=== PATIENT | female | born 1975 | race Caucasian/White ===

== ENCOUNTER 2017-08-14 12:13 | Inpatient (IN) | payer MEDICAID ==
[~2017-08-14] VITALS: Ht 152.4 cm; Wt 56.8 kg
[2017-08-14] MEDS ORDERED: PANTOPRAZOLE 40 MG INJ IV STA (13:02)
[2017-08-14] MEDS ORDERED: morphine 4 MG/ML VIAL IV STA (13:12)
[2017-08-14] MEDS ORDERED: ONDANSETRON 4 MG INJ IV STA (13:12)
--- NOTE | 2017-08-14 13:22 | ERD ---
ER Documentation Chief Complaint Chief Complaint HEAVY RECTAL BLEEDING, HX OF ANEMIA, ALSO SOB HPI This is a 41-year-old female history of drug-induced cardiomyopathy unknown ejection fraction, history of GI bleed secondary to gastric ulcer who presents with several days of rectal bleeding. Initially she started out with bright red blood per rectum and has transitioned to a little bit darker stool but not black. She denies any hematemesis. She is also describes some mild shortness of breath and mild chest discomfort that is central approximately 2 out of 10. She states this is very similar to episodes in the past where she has required blood transfusions. She is feeling generally weak. ROS All systems reviewed and are negative except as per history of present illness. Medications Home Meds Reported Medications Ferrous Gluconate (Iron) 236 Mg Tablet, 236 MG PO DAILY, TAB 08/14/17 Bumetanide* (Bumetanide*) 1 Mg Tablet, 1 MG PO DAILY, TAB 08/14/17 Sildenafil Citrate* (Viagra*) 100 Mg Tablet, 100 MG PO DAILY Y for COUGH, TAB 08/14/17 Pantoprazole* (Pantoprazole*) 40 Mg Tablet.dr, 40 MG PO AC BREAKFAST, TAB 08/14/17 Allergies Allergies: Coded Allergies: allopurinol (Unverified Allergy, Unknown, 08/14/17) PMhx/Soc As described in HPI FmHx Family History: No diabetes Physical Exam Vitals Vital Signs Date Time Temp Pulse Resp B/P Pulse Ox O2 Delivery O2 Flow Rate FiO2 08/14/17 16:10 98.3 87 18 96/63 98 Room Air 08/14/17 15:09 107 18 106/73 99 Room Air 08/14/17 13:10 116 20 100/70 100 Room Air 08/14/17 12:18 97.9 134 19 108/61 99 Physical Exam General: Well developed, well nourished, no acute distress Head: Normocephalic, atraumatic. Eyes: Pupils equally reactive, EOM intact conjunctival pallor ENT: Moist mucous membranes Neck: Supple, no lymphadenopathy Respiratory: Scant rales at the bases but no distress Cardiovascular: Tachycardia, no murmurs, rubs, or gallops Abdominal: Soft, non-tender, non-distended, no peritoneal signs : Deferred per patient request which I believe is reasonable MSK: No edema, no unilateral swelling, 5/5 strength Neurologic: Alert and oriented, moving all extremities, normal speech, no focal weakness, no cerebellar signs Skin: No rash Psych: Normal mood Result Diagram: 08/14/17 1300 08/14/17 1300 Results 24 hrs Laboratory Tests Test 08/14/17 13:00 White Blood Count 6.510^3/ul Red Blood Count 2.4310^6/ul Hemoglobin 6.6g/dl Hematocrit 22.6% Mean Corpuscular Volume 93.0fl Mean Corpuscular Hemoglobin 27.2pg Mean Corpuscular Hemoglobin Concent 29.2g/dl Red Cell Distribution Width 19.8% Platelet Count 54998^3/UL Mean Platelet Volume 10.4fl Neutrophils % 69.9% Segmented Neutrophils % (Manual) 65% Lymphocytes % 17.6% Lymphocytes % (Manual) 21% Monocytes % 6.6% Monocytes % (Manual) 6% Eosinophils % 4.8% Eosinophils % (Manual) 6% Basophils % 0.6% Basophils % (Manual) 2% Nucleated Red Blood Cells % 0.0/100WBC Neutrophils # 4.510^3/ul Absolute Lymphocytes (Manual) 1.310^3/ul Lymphocytes # 1.110^3/ul Monocytes # 0.410^3/ul Absolute Monocytes (Manual) 0.310^3/ul Eosinophils # 0.310^3/ul Basophils # 0.010^3/ul Basophils # (Manual) 0.110^3/ul Nucleated Red Blood Cells # 0.010^3/ul Platelet Estimate NORMAL Giant Platelets 1% Polychromasia 2+ Hypochromasia 1+ Anisocytosis 1+ Macrocytosis 1+ Prothrombin Time 12.6Sec Prothrombin Time Ratio 1.0 INR International Normalized Ratio 0.93 Activated Partial Thromboplast Time 26.9Sec Sodium Level 145mmol/L Potassium Level 3.5mmol/L Chloride Level 111mmol/L Carbon Dioxide Level 21mmol/L Anion Gap 17 Blood Urea Nitrogen 12mg/dl Creatinine 0.80mg/dl Glucose Level 108mg/dl Calcium Level 8.8mg/dl Total Bilirubin 0.2mg/dl Direct Bilirubin 0.00mg/dl Indirect Bilirubin 0.2mg/dl Aspartate Amino Transf (AST/SGOT) 17IU/L Alanine Aminotransferase (ALT/SGPT) 22IU/L Alkaline Phosphatase 77IU/L Troponin I < 0.012ng/ml B-Type Natriuretic Peptide 919PG/ML Total Protein 6.9g/dl Albumin 4.1g/dl Globulin 2.80g/dl Albumin/Globulin Ratio 1.46 Current Medications Medications (Trade) Dose Ordered Sig/Ty Route PRN Reason Start Time Stop Time Status Last Admin Dose Admin Pantoprazole (Protonix Iv) 40 mg ONCE STAT IV 08/14/17 13:02 08/14/17 13:04 DC 08/14/17 13:35 Morphine Sulfate (morphine) 4 mg ONCE STAT IV 08/14/17 13:12 08/14/17 13:13 DC 08/14/17 13:35 Ondansetron HCl 4 mg 4 mg ONCE STAT IV 08/14/17 13:12 08/14/17 13:13 DC 08/14/17 13:35 Sodium Chloride (NS) 250 ml @ 0 mls/hr Q0M ONCE IV 08/14/17 13:32 08/14/17 13:34 DC Ondansetron HCl (Zofran Inj) 4 mg ER BRIDGE PRN IV NAUSEA AND/OR VOMITING 08/14/17 14:30 08/15/17 14:29 Acetaminophen (Tylenol Tab) 650 mg ER BRIDGE PRN PO MILD PAIN/FEVER 08/14/17 14:30 08/15/17 14:29 IV Flush (NS 3 ml) 3 ml PER PROTOCOL IV 08/14/17 15:30 UNV Pantoprazole (Protonix Iv) 40 mg BID@06,18 IV 08/14/17 18:00 UNV Bumetanide (Bumex) 1 mg DAILY PO 08/15/17 09:00 Sildenafil Citrate (Viagra) 100 mg DAILY PRN PO COUGH 08/14/17 16:00 08/14/17 16:00 DC Sildenafil Citrate (Revatio) 10 mg TID PO 08/14/17 17:00 Procedures/MDM EKG, MONITORS, & DIAGNOSTIC IMAGING: EKG #1 EKG: I reviewed and interpreted a 12-lead EKG. Rhythm: Sinus tachycardia Ectopy: None Intervals: No abnormalities ST segments: ST segment depressions in anterior lateral leads consistent with demand ischemia versus chronic changes T waves: No contiguous inversions EKG #2 EKG: I reviewed and interpreted a 12-lead EKG. Rhythm: Sinus tachycardia Ectopy: None Intervals: No abnormalities ST segments: ST segment depressions in anterior lateral leads consistent with demand ischemia versus chronic changes, though improving from above T waves: No contiguous inversions Chest x-ray: I reviewed and interpreted a 1 view of the chest Mediastinum: No enlargement Cardiac silhouette: No cardiomegaly Airspace: Clear lung vee bilaterally without evidence of pneumothorax Bones: No evidence of fracture LAB INTERPRETATION: Hemoglobin less than 7, normal BUN to creatinine ratio MEDICAL DECISION MAKING: The patient presents with multiple issues including chest pain, rectal bleeding and likely anemia. The constellation of her symptoms are likely in the setting of chronic disease secondary to drug-induced cardiomyopathy and history of GI bleed. This is potentially a subacute upper GI bleed with the patient denies any significant hematemesis. She does describe a history of endoscopy showing what she thinks is a gastric ulcer. The patient is hemodynamically stable. I discussed rectal examination with the patient, we decided on deferring the digital rectal examination as it is unlikely to provide any additional information given the stability of the patient. She agrees with the plan. The patient will be started on a PPI. She was given morphine for pain in the chest. I would like to avoid aspirin given likely in the setting of demand ischemia secondary to GI bleed. The risks outweigh the benefits. Her chest pain is not likely consistent with acute plaque rupture. I would like to avoid aggressive fluid resuscitation therefore blood products would likely be necessary to control the patient's tachycardia I discussed with the patient and/or family the risks, benefits, alternatives of blood transfusion. This includes allergic reaction and infections including HIV and hepatitis. The patient and/or family were able to verbalize these risks , stated understanding. A document has been signed and placed in the chart. ER COURSE: 40 mg of PPI provided IV. The patient was typed and crossmatched for 1 unit of packed red blood cells. The patient continues to be hemodynamically stable without evidence of active hemorrhage. Nonemergent GI consultation per inpatient basis would be reasonable through primary admitting team. I kept the patient and/or family informed of laboratory and diagnostic imaging results throughout the emergency room course. DISPOSITION PLAN: Telemetry admission CONSULTATION: Accepting care team and consultations: I discussed the current laboratory data, diagnostic imaging and emergency care provided. Admitting team: Dr. Parker Admitting team indication: Insurance directed Departure Diagnosis: Primary Impression: GI hemorrhage GI bleed type/associated pathology: unspecified gastrointestinal hemorrhage type Qualified Code: K92.2 - Gastrointestinal hemorrhage, unspecified gastrointestinal hemorrhage type Additional Impressions: Symptomatic anemia History of cardiomyopathy Chest pain Chest pain type: unspecified Qualified Code: R07.9 - Chest pain, unspecified type Condition: PETE Dahl MD Aug 14, 2017 13:22
--- NOTE | 2017-08-14 13:22 | RADRPT ---
PROCEDURE: XR Chest. CLINICAL INDICATION: Shortness of breath TECHNIQUE: Single portable view of the chest was obtained COMPARISON: No priors for comparison FINDINGS: The trachea is midline. The cardiac silhouette is enlarged and pulmonary vascularity are within norm al limits. The lungs are clear. The costophrenic angles are sharp. IMPRESSION: 1. Cardiomegaly. No evidence of acute cardiopulmonary disease. RPTAT: AAPP Physician Lele Date Time Electronically viewed and signed by Aleyda Smyth Physician on 08/14/2017 13:22 JL/
[2017-08-14 13:28] LABS: ABNORMAL IP MESSAGE 1; BASOPHILS % 0.6 % (0.0-2.0); EOSINOPHILS # 0.3 10^3/ul (0.0-0.5); EOSINOPHILS % 4.8 % (0.0-7.0); HEMATOCRIT 22.6 % (37.0-47.0); LYMPHOCYTES # 1.1 10^3/ul (0.8-2.9); LYMPHOCYTES % 17.6 % (15.0-51.0); MEAN CORPUSCULAR HEMOGLOBIN 27.2 pg (29.0-33.0); MEAN CORPUSCULAR HGB CONC 29.2 g/dl (32.0-37.0); MEAN PLATELET VOLUME 10.4 fl (7.4-10.4); MONOCYTE # 0.4 10^3/ul (0.3-0.9); MONOCYTES % 6.6 % (0.0-11.0); NEUTROPHIL # 4.5 10^3/ul (1.6-7.5); NEUTROPHILS % 69.9 % (39.0-77.0); PLATELET COUNT 235 10^3/UL (140-415); RED BLOOD COUNT 2.43 10^6/ul (4.20-5.40); RED CELL DISTRIBUTION WIDTH 19.8 % (11.5-14.5); WHITE BLOOD COUNT 6.5 10^3/ul (4.8-10.8)
[2017-08-14 13:32] LABS: HEMOGLOBIN 6.6 g/dl (12.0-16.0); POSITIVE DIFF @See below
[2017-08-14] MEDS ORDERED: SOD CHLORIDE 0.9% 250 ML IV ONE ×3 (13:32→22:00)
[2017-08-14 13:45] LABS: INR 0.93; PROTIME 12.6 Sec (11.9-14.9)
[2017-08-14 13:46] LABS: PARTIAL THROMBOPLASTIN TIME 26.9 Sec (25.0-35.0)
[2017-08-14 13:48] LABS: ALANINE AMINOTRANSFERASE 22 IU/L (13-69); ALBUMIN 4.1 g/dl (3.3-4.9); ALBUMIN/GLOBULIN RATIO 1.46; ALKALINE PHOSPHATASE 77 IU/L (42-121); ANION GAP 17 (8-16); ASPARTATE AMINO TRANSFERASE 17 IU/L (15-46); BILIRUBIN,INDIRECT 0.2 mg/dl (0-1.1); BILIRUBIN,TOTAL 0.2 mg/dl (0.2-1.3); BLOOD UREA NITROGEN 12 mg/dl (7-20); CALCIUM 8.8 mg/dl (8.4-10.2); CARBON DIOXIDE 21 mmol/L (21-31); CHLORIDE 111 mmol/L (97-110); GLUCOSE 108 mg/dl (70-220); POTASSIUM 3.5 mmol/L (3.5-5.1); SODIUM 145 mmol/L (135-144); TOTAL PROTEIN 6.9 g/dl (6.1-8.1)
[2017-08-14 13:58] LABS: B-TYPE NATRIURETIC PEPTIDE 919 PG/ML (0-125)
[2017-08-14 14:02] LABS: TROPONIN-I < 0.012 ng/ml (0.00-0.12)
[2017-08-14] MEDS ORDERED: ONDANSETRON 4 MG INJ IV PRN (14:30)
[2017-08-14] MEDS ORDERED: ACETAMINOPHEN 325 MG TAB PO PRN (14:30)
[2017-08-14 14:36] LABS: ANISOCYTOSIS 1+ (0-0); BASOPHILS % (M) 2 % (0-2); EOSINOPHILS % (M) 6 % (0-7); GIANT THROMBO% (M) 1 % (0-0); HYPOCHROMASIA 1+ (0-0); MONOCYTES % (M) 6 % (0-11); PLATELET ESTIMATE NORMAL; POLYCHROMASIA 2+ (0-0)
[2017-08-14] MEDS ORDERED: BUME1TAB18 PO (14:59)
[2017-08-14] MEDS ORDERED: SILD100T51 PO (14:59)
[2017-08-14] MEDS ORDERED: PANT40TA4 PO (14:59)
[2017-08-14] MEDS ORDERED: FERR236T PO (15:00)
[2017-08-14] MEDS ORDERED: NACL 0.9% 3 ML SYG IV SCH (15:30)
--- NOTE | 2017-08-14 15:41 | HP ---
Date/Time of Note Date/Time of Note DATE: 08/14/17 TIME: 15:31 Assessment/Plan VTE Prophylaxis VTE Prophylaxis Intervention: other Lines/Catheters IV [facility]from [facility] Saline Lock Assessment/Plan Chief Complaint/Hosp Course 41 yo female with history of nonischemic systolic cardiomyopathy, pulmonary artery hypertension, and blood loss anemia presenting with hematochezia. Found to have marked anemia with Hgb of 6 Acute blood loss anemia 2/2 GIB: - Transfuse PRN > 7, with care for TACO given cardiomyopathy - Consult GI for endoscopy - PPI - Check iron stores Nonichemic chronic systolic cardiomyopathy, pulmonary hypertension: - Continue sildenafil - Continue bumex 1 mg daily - Check TTE - Unclear why no BB or CHANDA, etc - Dr Durand to consult for clearance Discharge following endoscopy Problems: HPI/ROS Admit Date/Time Admit Date/Time Hx of Present Illness 41 yo female with unclear nonischemic systolic cardiomyopathy, iron deficiency anemia, pulmonary artery hypertension who presents with hematochezia Patient with hematochezia over past three days. Last episode yesterday. Came to ED today because she feels week and out of breath. She has had this before. Previously underwent endoscopy earlier this year and told she has PUD and prescribed PPI and Fe. This was in [place] where she is visiting from currently. Feels well at rest. PMH/Family/Social Past Medical History Medical History: congestive heart failure, GI bleed Social History Alcohol Use: none Smoking Status: Never smoker Drug Use: none Exam/Review of Systems Vital Signs Vitals Vital Signs Date Time Temp Pulse Resp B/P Pulse Ox O2 Delivery O2 Flow Rate FiO2 08/14/17 15:09 107 18 106/73 99 Room Air 08/14/17 12:18 97.9 Exam Exam AOx3, pleasant, comfortable RRR, 2/6 systolic murmur, displaced PMI Lungs clear Neck veins flat Abd soft nt nd Rectal exam deferred ext without edema Labs Result Diagram: 08/14/17 1300 08/14/17 1300 LAILA LUI MD Aug 14, 2017 15:41
[2017-08-14] MEDS ORDERED: SILDENAFIL 100 MG TAB PO PRN (16:00)
[2017-08-14 16:10] VITALS: TEMP 98.3
[2017-08-14] MEDS: SILDENAFIL 20 MG TAB PO SCH ×2 (17:25→23:30)
--- NOTE | 2017-08-14 17:39 | CONS ---
Date/Time of Note Date/Time of Note DATE: 08/14/17 TIME: 17:34 Assessment/Plan Assessment/Plan Additional Assessment/Plan Acute blood loss anemia 2/2 GIB: Nonichemic chronic systolic cardiomyopathy Pulmonary hypertension: The patient with no active CHF, hemodynamically stable and as such, MAY PROCEED TO GI PROCEDURE WITH MODERATE CARDAIC RISK. Given hx of pulmonary HTN, anesthesia to be monitoring carefully due to higher risk of cardopulmonary compromise with the procedure Echo oredered to check EF and PAP Continue revatio Possible cardiac meds to be adjusted if low EF RX PRBC sw family Consultation Date/Type/Reason Admit Date/Time Hx of Present Illness 41 yo female with unclear nonischemic systolic cardiomyopathy, iron deficiency anemia, pulmonary artery hypertension who presents with hematochezia Patient with hematochezia over past three days. Last episode yesterday. Came to ED today because she feels week and out of breath. She has had this before. Previously underwent endoscopy earlier this year and told she has PUD and prescribed PPI and Fe. This was in [place] where she is visiting from currently. Feels well at rest. She has atypical chest pain, DOYLE with hx of CHF currently stable but procound anemia and may udergo EGD Past Medical History Medical History: congestive heart failure, GI bleed Social History Alcohol Use: none Smoking Status: Never smoker Drug Use: none Exam/Review of Systems Vital Signs Vitals Vital Signs Date Time Temp Pulse Resp B/P Pulse Ox O2 Delivery O2 Flow Rate FiO2 08/14/17 16:10 98.3 87 18 96/63 98 Room Air 08/14/17 16:00 2 Results Result Diagram: 08/14/17 1300 08/14/17 1300 Results 24 hrs Laboratory Tests Test 08/14/17 13:00 White Blood Count 6.5 Red Blood Count 2.43 L Hemoglobin 6.6 *L Hematocrit 22.6 L Mean Corpuscular Volume 93.0 Mean Corpuscular Hemoglobin 27.2 L Mean Corpuscular Hemoglobin Concent 29.2 L Red Cell Distribution Width 19.8 H Platelet Count 235 Mean Platelet Volume 10.4 Neutrophils % 69.9 Segmented Neutrophils % (Manual) 65 Lymphocytes % 17.6 Lymphocytes % (Manual) 21 Monocytes % 6.6 Monocytes % (Manual) 6 Eosinophils % 4.8 Eosinophils % (Manual) 6 Basophils % 0.6 Basophils % (Manual) 2 Nucleated Red Blood Cells % 0.0 Neutrophils # 4.5 Absolute Lymphocytes (Manual) 1.3 Lymphocytes # 1.1 Monocytes # 0.4 Absolute Monocytes (Manual) 0.3 Eosinophils # 0.3 Basophils # 0.0 Basophils # (Manual) 0.1 H Nucleated Red Blood Cells # 0.0 Platelet Estimate NORMAL Giant Platelets 1 H Polychromasia 2+ Hypochromasia 1+ Anisocytosis 1+ Macrocytosis 1+ Prothrombin Time 12.6 Prothrombin Time Ratio 1.0 INR International Normalized Ratio 0.93 Activated Partial Thromboplast Time 26.9 Sodium Level 145 H Potassium Level 3.5 Chloride Level 111 H Carbon Dioxide Level 21 Anion Gap 17 H Blood Urea Nitrogen 12 Creatinine 0.80 Glucose Level 108 Calcium Level 8.8 Total Bilirubin 0.2 Direct Bilirubin 0.00 Indirect Bilirubin 0.2 Aspartate Amino Transf (AST/SGOT) 17 Alanine Aminotransferase (ALT/SGPT) 22 Alkaline Phosphatase 77 Troponin I < 0.012 B-Type Natriuretic Peptide 919 H Total Protein 6.9 Albumin 4.1 Globulin 2.80 Albumin/Globulin Ratio 1.46 Medications Medications Current Medications Pantoprazole (Protonix Iv) 40 mg BID@06,18 IV ; Start 08/14/17 at 22:00 Bumetanide (Bumex) 1 mg DAILY PO ; Start 08/15/17 at 09:00 Sildenafil Citrate (Revatio) 10 mg TID PO Last administered on 08/14/17t 17:25 ; Admin Dose 10 MG; Start 08/14/17 at 17:00 RYANN ALICIA MD Aug 14, 2017 17:39
--- NOTE | 2017-08-14 17:50 | RADRPT ---
Echocardiogram Report Patient Name: AINSLEY CLEARY Gender: Female Date: 1975 Study Date: 14-Aug-2017 [employer] Field Supervisor: Jim [facility] Location: [facility] Ref. Physician: LAILA LUI Quality: Adequate Procedures: Transthoracic echocardiogram with complete 2D, M-Mode, and doppler examination. Indications: Congestive Heart Failure. 2D/M Mode Doppler Measurement Value Normal Ranges Measurement Value Normal Ranges LVIDd 2D 3.7 3.5 - 5.6 cm AV Peak Pierre 1.3 m/sec LVIDs 2D 2.5 2.1 - 4.1 cm AV Peak PG 7.0 mmHg FS 2D 32.0 % LVOT Peak Pierre 0.8 m/sec LVPWd 2D 1.3 0.6 - 1.1 cm LVOT Peak PG 3.0 mmHg IVSd 2D 1.3 0.6 - 1.1 cm MV E Peak Pierre 0.9 m/sec IVS/LVPW 2D 1.0 MV A Peak Pierre 0.7 m/sec AoR Diam 2D 3.0 2.0 - 3.7 cm MV E/A 1.3 LA/Ao 2D 1 0 - 1 MV Decel Time 134 msec EDV 2D 51.5 cm3 MV E/A 1.3 ESV 2D 16.2 cm3 TR Peak Pierre 5.0 m/sec LA Dimen 2D 3.9 2.3 - 4.0 cm TR Peak PG 100.0 mmHg RVSP 103.0 mmHg Findings Left Ventricle: Normal left ventricular systolic function. Normal left ventricular cavity size. Moderate concentric left ventricular hypertrophy. Ejection fraction is visually estimated at 65 %. Abnormal Diastolic Function. Right Ventricle: Normal right ventricular systolic function. Severe enlargement of right ventricle. Left Atrium: There is mild enlargement of left atrium. Right Atrium: There is mild enlargement of right atrium. Mitral Valve: Mild mitral leaflet calcification. Mild mitral annular calcification. Trace mitral regurgitation. Aortic Valve: Normal appearance of the aortic valve. No significant aortic stenosis or insufficiency. Tricuspid Valve: Normal appearance of the tricuspid valve. Estimated peak PA systolic pressure 103 mmHg. There is moderate to severe tricuspid regurgitation. Pulmonic Valve: Pulmonic valve not well visualized. There is trace pulmonic regurgitation. Pericardium: Normal pericardium with no significant pericardial effusion. Aorta: Normal aortic root. IVC: Normal size and normal respiratory collapse consistent with normal right atrial pressure. Conclusions 1.Normal left ventricular systolic function. Normal left ventricular cavity size. Moderate concentric left ventricular hypertrophy. Ejection fraction is visually estimated at 65 %. Abnormal Diastolic Function. 2.There is mild enlargement of left atrium. 3.There is mild enlargement of right atrium. 4.Mild mitral leaflet calcification. Mild mitral annular calcification. Trace mitral regurgitation. 5.Normal appearance of the aortic valve. No significant aortic stenosis or insufficiency. 6.Normal right ventricular systolic function. Severe enlargement of right ventricle. 7.Normal appearance of the tricuspid valve. Estimated peak PA systolic pressure 103 mmHg. There is moderate to severe tricuspid regurgitation. 8.Pulmonic valve not well visualized. There is trace pulmonic regurgitation. 9.Normal pericardium with no significant pericardial effusion. Electronically Signed By: Florentino Doll 14-Aug-2017 17:49:50 -0800 Patient Name: AINSLEY CLEARY Study Date: 14-Aug-2017 [id number]
[2017-08-14 20:04] LABS: ADD UMIC YES; UR ASCORBIC ACID NEGATIVE (NEGATIVE); UR BILIRUBIN (Dip) NEGATIVE (NEGATIVE); UR BLOOD (Dip) 3+ mg/dL (NEGATIVE); UR CLARITY CLEAR (CLEAR); UR COLOR YELLOW (YELLOW); UR GLUCOSE (Dip) NEGATIVE (NEGATIVE); UR KETONES (Dip) NEGATIVE (NEGATIVE); UR LEUKOCYTE ESTERASE (Dip) NEGATIVE Leu/ul (NEGATIVE); UR MUCUS FEW /HPF (NONE SEEN); UR NITRITE (Dip) NEGATIVE (NEGATIVE); UR RBC 9 /HPF (0-5); UR SPECIFIC GRAVITY (Dip) 1.024 (1.003-1.030); UR SQUAMOUS EPITHELIAL CELL FEW /HPF (FEW); UR TOTAL PROTEIN (Dip) NEGATIVE (NEGATIVE); UR UROBILINOGEN (Dip) NEGATIVE (NEGATIVE)
[2017-08-14 20:13] LABS: CREATINE KINASE 24 IU/L (23-200)
[2017-08-14 20:25] LABS: CK-MB 0.26 ng/ml (0.0-2.4)
[2017-08-14 20:26] LABS: TROPONIN-I < 0.012 ng/ml (0.00-0.12)
[2017-08-14 20:30] VITALS: Ht 152.4 cm; Wt 56.8 kg
[2017-08-14 20:53] VITALS: PULSE 79
[2017-08-14] MEDS ORDERED: morphine 2 MG INJ IV STA (20:59)
[2017-08-14 21:26] LABS: BASOPHILS % 0.3 % (0.0-2.0); EOSINOPHILS # 0.2 10^3/ul (0.0-0.5); EOSINOPHILS % 3.4 % (0.0-7.0); HEMATOCRIT 22.7 % (37.0-47.0); LYMPHOCYTES # 0.8 10^3/ul (0.8-2.9); LYMPHOCYTES % 13.9 % (15.0-51.0); MEAN CORPUSCULAR HEMOGLOBIN 27.7 pg (29.0-33.0); MEAN CORPUSCULAR HGB CONC 30.8 g/dl (32.0-37.0); MEAN CORPUSCULAR VOLUME 89.7 fl (82.0-101.0); MEAN PLATELET VOLUME 11.8 fl (7.4-10.4); MONOCYTE # 0.4 10^3/ul (0.3-0.9); MONOCYTES % 6.7 % (0.0-11.0); NEUTROPHIL # 4.4 10^3/ul (1.6-7.5); NEUTROPHILS % 75.4 % (39.0-77.0); NUCLEATED RED BLOOD CELLS% 0.3 /100WBC (0.0-0.0); PLATELET COUNT 159 10^3/UL (140-415); RED BLOOD COUNT 2.53 10^6/ul (4.20-5.40); RED CELL DISTRIBUTION WIDTH 18.9 % (11.5-14.5); WHITE BLOOD COUNT 5.8 10^3/ul (4.8-10.8)
[2017-08-14] MEDS ORDERED: SOD CHLORIDE 0.9% 1,000 ML IV SCH (22:00)
[2017-08-14 22:07] VITALS: BP 96/55; RESP 20
[2017-08-14] MEDS: PANTOPRAZOLE 40 MG INJ IV SCH (23:22)
[2017-08-14 23:36] VITALS: BP 90/52; RESP 20
[2017-08-15] VITALS (20 sets, daily range): BP systolic 85–98; BP diastolic 51–64; PULSE 66–152; RESP 18–25
[2017-08-15] MEDS ORDERED: POTASSIUM CHLORIDE 250 ML IVPB ONE (01:00)
[2017-08-15] MEDS ORDERED: FUROSEMIDE 20 MG TAB PO ONE (01:00)
[2017-08-15] MEDS ORDERED: SOD CHLORIDE 0.9% 250 ML IV ONE (04:30)
[2017-08-15] MEDS: PANTOPRAZOLE 40 MG INJ IV SCH (06:27)
[2017-08-15 07:38] LABS: ABNORMAL IP MESSAGE 1; BASOPHILS % 0.7 % (0.0-2.0); EOSINOPHILS # 0.2 10^3/ul (0.0-0.5); EOSINOPHILS % 4.8 % (0.0-7.0); HEMATOCRIT 22.2 % (37.0-47.0); LYMPHOCYTES # 0.7 10^3/ul (0.8-2.9); LYMPHOCYTES % 15.2 % (15.0-51.0); MEAN CORPUSCULAR HEMOGLOBIN 27.4 pg (29.0-33.0); MEAN CORPUSCULAR HGB CONC 29.7 g/dl (32.0-37.0); MEAN CORPUSCULAR VOLUME 92.1 fl (82.0-101.0); MONOCYTE # 0.3 10^3/ul (0.3-0.9); MONOCYTES % 6.7 % (0.0-11.0); NEUTROPHIL # 3.3 10^3/ul (1.6-7.5); NEUTROPHILS % 72.4 % (39.0-77.0); PLATELET COUNT 179 10^3/UL (140-415); RED BLOOD COUNT 2.41 10^6/ul (4.20-5.40); RED CELL DISTRIBUTION WIDTH 19.7 % (11.5-14.5); WHITE BLOOD COUNT 4.6 10^3/ul (4.8-10.8)
[2017-08-15 07:41] LABS: ALBUMIN 3.2 g/dl (3.3-4.9); ALBUMIN/GLOBULIN RATIO 1.14; BILIRUBIN,INDIRECT 0.5 mg/dl (0-1.1); BILIRUBIN,TOTAL 0.5 mg/dl (0.2-1.3); CALCIUM 8.9 mg/dl (8.4-10.2); CREATININE 0.75 mg/dl (0.44-1.00); POTASSIUM 4.3 mmol/L (3.5-5.1)
[2017-08-15 07:45] LABS: POSITIVE DIFF @See below
[2017-08-15 07:47] LABS: HEMOGLOBIN 6.6 g/dl (12.0-16.0)
[2017-08-15 07:49] LABS: CREATINE KINASE < 20 IU/L (23-200)
[2017-08-15 07:54] LABS: CK-MB 0.34 ng/ml (0.0-2.4)
[2017-08-15 07:57] LABS: TROPONIN-I < 0.012 ng/ml (0.00-0.12)
[2017-08-15] MEDS ORDERED: morphine 2 MG INJ IV STA (08:09)
[2017-08-15] MEDS: BUMETANIDE 1 MG TAB PO SCH (08:11)
[2017-08-15] MEDS: SILDENAFIL 20 MG TAB PO SCH ×3 (08:11→21:00)
[2017-08-15 08:12] LABS: THYROID STIMULATING HORMONE 2.56 MIU/L (0.465-4.680)
--- NOTE | 2017-08-15 10:29 | CONS ---
Date/Time of Note Date/Time of Note DATE: 08/15/17 TIME: 10:15 Assessment/Plan Assessment/Plan Chief Complaint/Hosp Course Summary Assessment and Plan: Assessment: Acute anemia R/o PUD vs gastritis vs AVM Nonischemic chronic systolic cardiomyopathy Pulmonary hypertension: Plan: Keep NPO status PPI therapy plan for EGD today Endoscopy - risks/benefits/alternatives/indications of procedure and sedation/ anesthesia discussed with patient who states understanding and gives informed consent to proceed. PARQ held and questions were answered. Patient seen in collaboration with Problems: Consultation Date/Type/Reason Admit Date/Time Date of Consultation: Aug 15, 2017 Type of Consultation: GI Reason for Consultation Hematochezia Severe anemia Hx of Present Illness This is a 41-year-old female with past medical history of cardiomyopathy and pulmonary arterial hypertension diagnosed 5 years ago, and recent diagnosis of gastric ulcer. Presents to the ER with worsening fatigue and shortness of breath, patient is currently visiting from [facility]. She noted black tarry stools starting about 5 days ago and and continued with bright red stools last bm 2 days ago. The time of examination patient is already received 1 unit of blood for hemoglobin 6.6 today's lab again was 6.6 and is currently receiving a unit of blood. Patient was seen by Dr. Doll cardiac clearance, he is deemed moderate cardiac risk given history of pulmonary hypertension , anesthesia to be monitoring carefully due to higher risk of cardiopulmonary compromise with the procedure. She had similar symptoms last month, underwent EGD and colonoscopy, was diagnosed with gastric ulcer placed on PPI therapy. Her colonoscopy was negative. She currently denies nausea/vomiting/abdominal pain, hematemesis, any further episodes of hematochezia at this time, or unintentional weight loss. With current presentation we will continue n.p.o. status and plan for EGD this evening, continue IV fluids, and continue to monitor H/H. Further recommendations post EGD. Constitutional: no complaints, requiring IVF Eyes: no complaints ENT: no complaints Respiratory: no complaints Cardiovascular: no complaints Gastrointestinal: blood, decreased appetite, No constipation, No nausea, No vomiting Genitourinary: no complaints, other (currently at the end of her menstral cycle ) Musculoskeletal: no complaints Skin: no complaints Past Medical History Medical History: congestive heart failure, GI bleed, other (PAH) Past Surgical History Past Surgical Hx: endoscopy Social History Alcohol Use: none Smoking Status: Never smoker Drug Use: none Exam/Review of Systems Vital Signs Vitals Vital Signs Date Time Temp Pulse Resp B/P Pulse Ox O2 Delivery O2 Flow Rate FiO2 08/15/17 08:38 77 08/15/17 07:56 98.0 20 85/51 97 08/14/17 19:30 Room Air 08/14/17 16:00 2 Intake and Output 08/14/17 08/14/17 08/15/17 15:00 23:00 07:00 Intake Total 350 ml 1120 ml Output Total 450 ml Balance 350 ml 670 ml Exam Constitutional: alert, oriented Psych: no complaints Head: normocephalic Eyes: nl conjunctiva ENMT: nl external ears & nose Neck: non-tender, supple Respiratory: clear to auscultation, normal air movement Cardiovascular: regular rate and rhythm Gastrointestinal: bowel sounds, non-tender, soft, No ascites, No distended, No firm, No hepatomegaly, No mass, No rebound or guarding, No splenomegaly, No surgical scars, No tender Genitourinary - Female: nl adnexae Musculoskeletal: nl extremities to inspection Extremities: normal pulses Results Result Diagram: 08/15/1762608/15/17626 Results 24 hrs Laboratory Tests Test 08/14/17 13:00 08/14/17 19:37 08/14/17 19:48 08/14/17 21:17 White Blood Count 6.5 5.8 Red Blood Count 2.43 L 2.53 L Hemoglobin 6.6 *L 7.0 L Hematocrit 22.6 L 22.7 L Mean Corpuscular Volume 93.0 89.7 Mean Corpuscular Hemoglobin 27.2 L 27.7 L Mean Corpuscular Hemoglobin Concent 29.2 L 30.8 L Red Cell Distribution Width 19.8 H 18.9 H Platelet Count 235 159 # Mean Platelet Volume 10.4 11.8 H Neutrophils % 69.9 75.4 Segmented Neutrophils % (Manual) 65 Lymphocytes % 17.6 13.9 L Lymphocytes % (Manual) 21 Monocytes % 6.6 6.7 Monocytes % (Manual) 6 Eosinophils % 4.8 3.4 Eosinophils % (Manual) 6 Basophils % 0.6 0.3 Basophils % (Manual) 2 Nucleated Red Blood Cells % 0.0 0.3 H Neutrophils # 4.5 4.4 Absolute Lymphocytes (Manual) 1.3 Lymphocytes # 1.1 0.8 Monocytes # 0.4 0.4 Absolute Monocytes (Manual) 0.3 Eosinophils # 0.3 0.2 Basophils # 0.0 0.0 Basophils # (Manual) 0.1 H Nucleated Red Blood Cells # 0.0 0.0 Platelet Estimate NORMAL Giant Platelets 1 H Polychromasia 2+ Hypochromasia 1+ Anisocytosis 1+ Macrocytosis 1+ Prothrombin Time 12.6 Prothrombin Time Ratio 1.0 INR International Normalized Ratio 0.93 Activated Partial Thromboplast Time 26.9 Sodium Level 145 H Potassium Level 3.5 Chloride Level 111 H Carbon Dioxide Level 21 Anion Gap 17 H Blood Urea Nitrogen 12 Creatinine 0.80 Glucose Level 108 Calcium Level 8.8 Total Bilirubin 0.2 Direct Bilirubin 0.00 Indirect Bilirubin 0.2 Aspartate Amino Transf (AST/SGOT) 17 Alanine Aminotransferase (ALT/SGPT) 22 Alkaline Phosphatase 77 Troponin I < 0.012 < 0.012 B-Type Natriuretic Peptide 919 H Total Protein 6.9 Albumin 4.1 Globulin 2.80 Albumin/Globulin Ratio 1.46 Creatine Kinase 24 Creatine Kinase Index 1.1 Creatinine Kinase MB (Mass) 0.26 Urine Color YELLOW Urine Clarity CLEAR Urine pH 5.0 Urine Specific [place] 1.024 Urine Ketones NEGATIVE Urine Nitrite NEGATIVE Urine Bilirubin NEGATIVE Urine Urobilinogen NEGATIVE Urine Leukocyte Esterase NEGATIVE Urine Microscopic RBC 9 H Urine Microscopic WBC 2 Urine Squamous Epithelial Cells FEW Urine Mucus FEW A Urine Hemoglobin 3+ H Urine Glucose NEGATIVE Urine Total Protein NEGATIVE Test 08/15/17 06:27 White Blood Count 4.6 #L Red Blood Count 2.41 L Hemoglobin 6.6 *L Hematocrit 22.2 L Mean Corpuscular Volume 92.1 Mean Corpuscular Hemoglobin 27.4 L Mean Corpuscular Hemoglobin Concent 29.7 L Red Cell Distribution Width 19.7 H Platelet Count 179 Mean Platelet Volume 11.0 H Neutrophils % 72.4 Lymphocytes % 15.2 Monocytes % 6.7 Eosinophils % 4.8 Basophils % 0.7 Nucleated Red Blood Cells % 0.0 Neutrophils # 3.3 Lymphocytes # 0.7 L Monocytes # 0.3 Eosinophils # 0.2 Basophils # 0.0 Nucleated Red Blood Cells # 0.0 Sodium Level 147 H Potassium Level 4.3 Chloride Level 115 H Carbon Dioxide Level 22 Anion Gap 14 Blood Urea Nitrogen 12 Creatinine 0.75 Glucose Level 78 Calcium Level 8.9 Total Bilirubin 0.5 Direct Bilirubin 0.00 Indirect Bilirubin 0.5 Aspartate Amino Transf (AST/SGOT) 17 Alanine Aminotransferase (ALT/SGPT) 28 Alkaline Phosphatase 66 Creatine Kinase < 20 L Creatine Kinase Index Creatinine Kinase MB (Mass) 0.34 Troponin I < 0.012 Total Protein 6.0 L Albumin 3.2 L Globulin 2.80 Albumin/Globulin Ratio 1.14 Thyroid Stimulating Hormone (TSH) 2.560 Medications Medications Current Medications Pantoprazole (Protonix Iv) 40 mg BID@06,18 IV Last administered on 08/15/17 06 :27; Admin Dose 40 MG; Start 08/14/17 at 22:00 Bumetanide (Bumex) 1 mg DAILY PO ; Start 08/15/17 at 09:00 Sildenafil Citrate (Revatio) 10 mg TID PO Last administered on 08/14/17 17:25 ; Admin Dose 10 MG; Start 08/14/17 at 17:00 Copies To: CC: CHRIS WEST MD, VICTORIA Aug 15, 2017 10:27
--- NOTE | 2017-08-15 13:55 | PN ---
Date/Time of Note Date/Time of Note DATE: 08/15/17 TIME: 13:53 Assessment/Plan VTE Prophylaxis VTE Prophylaxis Intervention: SCD's Lines/Catheters IV Catheter Type (from Nrs): Peripheral IV Assessment/Plan Chief Complaint/Hosp Course 41 yo female with history of pulmonary artery hypertension, and blood loss anemia presenting with hematochezia. Found to have marked anemia with Hgb of 6 Acute blood loss anemia 2/2 GIB: - Transfuse PRN > 7 - endoscopy today - PPI - Check iron stores Pulmonary hypertension: - Continue sildenafil - Continue bumex 1 mg daily Severe tricsupid regurgitation Concentric left ventricular hypertrophy Discharge following endoscopic evaluation and H/H stable Problems: Subjective 24 Hr Interval Summary Free Text/Dictation TTE showed normal EF, concentric LVH, PASP 100, mod/severe TR Transfused another unit of PRBCs this AM Awaiting EGD Exam/Review of Systems Vital Signs Vitals Vital Signs Date Time Temp Pulse Resp B/P Pulse Ox O2 Delivery O2 Flow Rate FiO2 08/15/17 12:58 98.0 70 20 87/53 98 08/14/17 19:30 Room Air 08/14/17 16:00 2 Intake and Output 08/14/17 08/14/17 08/15/17 15:00 23:00 07:00 Intake Total 350 ml 1120 ml Output Total 450 ml Balance 350 ml 670 ml Exam Constitutional: alert, oriented, well developed Psych: nl mood/affect, no complaints Head: atraumatic, normocephalic Eyes: EOMI, PERRL, nl conjunctiva, nl lids, nl sclera ENMT: nl external ears & nose, nl lips & teeth, nl nasal mucosa & septum Neck: non-tender, supple Respiratory: clear to auscultation, normal air movement Cardiovascular: nl pulses, regular rate and rhythm Gastrointestinal: nl liver, spleen, non-tender, soft Musculoskeletal: nl extremities to inspection, nl gait and stance Extremities: normal pulses Neurological: WELL SERVICE FLOORPERSON II-XII intact, nl mental status, nl speech, nl strength Skin: nl turgor, No rash or lesions Lymph: nl lymph nodes Results Result Diagram: 08/15/1727 08/15/17626 Results 24 hrs Laboratory Tests Test 08/14/17 19:37 08/14/17 19:48 08/14/17 21:17 08/15/17 06:27 Creatine Kinase 24 < 20 L Creatine Kinase Index 1.1 Creatinine Kinase MB (Mass) 0.26 0.34 Troponin I < 0.012 < 0.012 Urine Color YELLOW Urine Clarity CLEAR Urine pH 5.0 Urine Specific [place] 1.024 Urine Ketones NEGATIVE Urine Nitrite NEGATIVE Urine Bilirubin NEGATIVE Urine Urobilinogen NEGATIVE Urine Leukocyte Esterase NEGATIVE Urine Microscopic RBC 9 H Urine Microscopic WBC 2 Urine Squamous Epithelial Cells FEW Urine Mucus FEW A Urine Hemoglobin 3+ H Urine Glucose NEGATIVE Urine Total Protein NEGATIVE White Blood Count 5.8 4.6 #L Red Blood Count 2.53 L 2.41 L Hemoglobin 7.0 L 6.6 *L Hematocrit 22.7 L 22.2 L Mean Corpuscular Volume 89.7 92.1 Mean Corpuscular Hemoglobin 27.7 L 27.4 L Mean Corpuscular Hemoglobin Concent 30.8 L 29.7 L Red Cell Distribution Width 18.9 H 19.7 H Platelet Count 159 # 179 Mean Platelet Volume 11.8 H 11.0 H Neutrophils % 75.4 72.4 Lymphocytes % 13.9 L 15.2 Monocytes % 6.7 6.7 Eosinophils % 3.4 4.8 Basophils % 0.3 0.7 Nucleated Red Blood Cells % 0.3 H 0.0 Neutrophils # 4.4 3.3 Lymphocytes # 0.8 0.7 L Monocytes # 0.4 0.3 Eosinophils # 0.2 0.2 Basophils # 0.0 0.0 Nucleated Red Blood Cells # 0.0 0.0 Sodium Level 147 H Potassium Level 4.3 Chloride Level 115 H Carbon Dioxide Level 22 Anion Gap 14 Blood Urea Nitrogen 12 Creatinine 0.75 Glucose Level 78 Calcium Level 8.9 Total Bilirubin 0.5 Direct Bilirubin 0.00 Indirect Bilirubin 0.5 Aspartate Amino Transf (AST/SGOT) 17 Alanine Aminotransferase (ALT/SGPT) 28 Alkaline Phosphatase 66 Total Protein 6.0 L Albumin 3.2 L Globulin 2.80 Albumin/Globulin Ratio 1.14 Thyroid Stimulating Hormone (TSH) 2.560 Medications Medications Current Medications Pantoprazole (Protonix Iv) 40 mg BID@06,18 IV Last administered on 08/15/17t 06 :27; Admin Dose 40 MG; Start 08/14/17 at 22:00 Bumetanide (Bumex) 1 mg DAILY PO ; Start 08/15/17 at 09:00 Sildenafil Citrate (Revatio) 10 mg TID PO Last administered on 08/14/17t 17:25 ; Admin Dose 10 MG; Start 08/14/17 at 17:00 LAILA LUI MD Aug 15, 2017 13:55
[2017-08-15 16:01] LABS: HEMATOCRIT 24.9 % (37.0-47.0); HEMOGLOBIN 7.9 g/dl (12.0-16.0)
[2017-08-15] MEDS ORDERED: PROPOFOL 20 ML ONE (16:29)
[2017-08-15] MEDS ORDERED: PHENYLephrine (100 MCG/ML) 5ML SYG ONE (16:41)
--- NOTE | 2017-08-15 16:57 | OPPN ---
Date/Time of Note Date/Time of Note DATE: 08/15/17 TIME: 16:46 Proc Note GI Procedure Date 08/15/17 Indication: other (GI bleeding) Pre-procedure Diagnosis GI bleeding Post-procedure Diagnosis Impression: Moderate distal esophagitis. No evidence of bleeding. Multi-ringed esophagus. Rule out eosinophilic esophagitis. Biopsies obtained Moderate gastritis. Rule out H. pylori infection. Biopsies obtained Otherwise normal EGD to the third portion of the duodenum. Plan: PPI therapy Review pathology Colonoscopy Monitor H&H transfuse as necessary . Procedure Performed: Endoscopy (With biopsies) Surgeon CHRIS WEST MD See signature line Colorist Dyer none Anesthesia Type: MAC Anesthesiologist: AARON KINNEY MD Tourniquet Time none EBL none Transfusion required none Biopsy 1: Gastric antrum and body Biopsy 2: Midesophagus Grafts/Implants none Tubes/Drains none Complication(s) none Disposition: PACU Procedure Description After informed consent, with the patient/relatives understanding the procedure, its indications, potential risks and complications, including but not limited to : allergic reaction, bleeding, perforation or infection, and after all pertinent questions were answered to the patients satisfaction, the patient/ relatives signed witnessed informed consent. Following this, premedication was administered slowly IV push under careful cardiovascular and respiratory monitoring with pulse oximetry, automatic blood pressure, and quality assurance monitor. Once the sedative effect was achieved the patient was place in the left lateral decubitus, the panendoscope was introduced and advanced under visual control. Careful examination of the upper gastrointestinal tract, both on insertion as well as withdrawal of the instrument disclosing the following findings: ESOPHAGUS: the mucosa of the entire esophagus was carefully examined and showed the following findings: The midesophagus shows a multi-ringed appearance suggestive of eosinophilic esophagitis. Biopsies were obtained. The distal esophagus showed significant erythema, edema and erosion of the mucosa. No active or recent bleeding is evident. Otherwise the mucosa appears within normal limits. There is no evidence of varices, neoplasm, or stricture. Small hiatal Hernia identified. STOMACH: Upon entrance to the stomach air was insufflated, the gastric melara distended normally. The mucosa of the fundus, body and antrum of the stomach was carefully examined both head-on and on retroflexion, and showed the following findings: There is moderate erythema and edema the mucosa of the body and antrum of the stomach. Biopsies were obtained to rule out H. pylori infection. Otherwise the mucosa appears within normal limits with no abnormalities. There is no evidence of ulcers or neoplasm. PYLORUS: The pylorus was carefully examined and showed the following findings: the pylorus appears patent and within normal limits, with no evidence of gastric outlet obstruction. DUODENUM: The duodenal mucosa was carefully examined in the duodenal bulb as well as the second portion of the duodenum and showed the following findings: the mucosa appears unremarkable with no evidence of duodenitis, ulcer or neoplasm. Copies To: CC: CHRIS WEST MD, MORDO MD Aug 15, 2017 16:57
[2017-08-15] MEDS ORDERED: BISACODYL (EC) 5 MG TAB PO ONE (17:00)
[2017-08-15] MEDS ORDERED: MAGNESIUM CITRATE 300 ML BTL PO ONE (17:30)
[2017-08-15] MEDS ORDERED: OCTREOTIDE 1 MG in SOD CHLORIDE 0.9% 95 ML IV SCH (18:00)
[2017-08-15] MEDS ORDERED: PANTOPRAZOLE 40 MG INJ IV SCH (18:00)
[2017-08-15] MEDS ORDERED: SUCRALFATE (100 MG/ML) 10ML CUP PO SCH (18:00)
[2017-08-15] MEDS ORDERED: PANTOPRAZOLE IV 80 MG in SOD CHLORIDE 0.9% 100 ML IV SCH (18:00)
[2017-08-15 18:28] LABS: HEMATOCRIT 27.3 % (37.0-47.0); HEMOGLOBIN 8.5 g/dl (12.0-16.0)
[2017-08-15] MEDS ORDERED: POLYETHYLENE GLYCOL 3350 119 GM POWDER PO ONE (18:30)
[2017-08-15] MEDS: morphine 2 MG INJ IV PRN (21:03)
[2017-08-16] VITALS (17 sets, daily range): BP systolic 82–107; BP diastolic 52–77; PULSE 70–96; RESP 16–25
[2017-08-16 01:27] LABS: HEMOGLOBIN 8.1 g/dl (12.0-16.0)
[2017-08-16] MEDS ORDERED: PANTOPRAZOLE 40 MG INJ IV SCH (06:00)
[2017-08-16] MEDS ORDERED: POLYETHYLENE GLYCOL 3350 119 GM POWDER PO ONE (06:00)
[2017-08-16 06:18] LABS: BASOPHILS % 0.5 % (0.0-2.0); EOSINOPHILS # 0.3 10^3/ul (0.0-0.5); EOSINOPHILS % 4.8 % (0.0-7.0); HEMATOCRIT 30.9 % (37.0-47.0); HEMOGLOBIN 9.9 g/dl (12.0-16.0); LYMPHOCYTES # 0.7 10^3/ul (0.8-2.9); LYMPHOCYTES % 11.9 % (15.0-51.0); MEAN CORPUSCULAR VOLUME 87.3 fl (82.0-101.0); MONOCYTE # 0.4 10^3/ul (0.3-0.9); MONOCYTES % 7.5 % (0.0-11.0); NEUTROPHIL # 4.4 10^3/ul (1.6-7.5); PLATELET COUNT 197 10^3/UL (140-415); RED BLOOD COUNT 3.54 10^6/ul (4.20-5.40); RED CELL DISTRIBUTION WIDTH 16.9 % (11.5-14.5); WHITE BLOOD COUNT 5.9 10^3/ul (4.8-10.8)
[2017-08-16 06:46] LABS: CALCIUM 8.9 mg/dl (8.4-10.2); CREATININE 0.77 mg/dl (0.44-1.00)
[2017-08-16] MEDS ORDERED: BISACODYL (EC) 5 MG TAB PO ONE (08:00)
[2017-08-16] MEDS: SILDENAFIL 20 MG TAB PO SCH ×2 (08:52→13:22)
[2017-08-16] MEDS: BUMETANIDE 1 MG TAB PO SCH (09:00)
--- NOTE | 2017-08-16 10:29 | PN ---
Date/Time of Note Date/Time of Note DATE: 08/16/17 TIME: 10:27 Assessment/Plan VTE Prophylaxis VTE Prophylaxis Intervention: ambulation Lines/Catheters IV [facility]from [facility]ine [facility] Assessment/Plan Chief Complaint/Hosp Course Assessment: S/p EGD Impression: Moderate distal esophagitis. No evidence of bleeding. Multi-ringed esophagus. Rule out eosinophilic esophagitis. Biopsies obtained Moderate gastritis. Rule out H. pylori infection. Biopsies obtained Otherwise normal EGD to the third portion of the duodenum. Plan: PPI therapy Review pathology Colonoscopy Monitor H&H transfuse as necessary Problems: Exam/Review of Systems Vital Signs Vitals Vital Signs Date Time Temp Pulse Resp B/P Pulse Ox O2 Delivery O2 Flow Rate FiO2 08/16/17 08:28 98.4 74 17 95/62 98 08/16/17 03:46 Room Air 08/14/17 16:00 2 Intake and Output 08/15/17 08/15/17 08/16/17 15:00 23:00 07:00 Intake Total 350 ml 1500 ml Balance 350 ml 1500 ml Exam PHYSICAL EXAMINATION: GENERAL: Well developed, well nourished, alert & oriented x 3, in no acute distress SKIN: No lesions, no stigmata chronic liver disease, no evidence of bleeding diathesis LYMPHATIC: No palpable lymphadenopathy. HEAD: Normocephalic, atraumatic, no tenderness. EYES: Pupils equal reactive to light and accommodation, full extraocular movements, sclera clear, non-icteric, no discharge. EARS/NOSE AND THROAT: Ears normal, nose normal, oropharynx normal, oral membranes well hydrated without lesions. NECK: Supple, no masses, thyroid normal, JVP within normal limits, carotids normal without bruits. CHEST: Inspection within normal limits. CARDIOVASCULAR: Heart: Regular rate and rhythm, no murmurs, gallops or rubs. Peripheral pulses present within normal limits, no cyanosis, clubbing or edemas. No pulsatile abdominal mass RESPIRATORY: Lungs clear to auscultation and percussion, no wheezing, no rubs GASTROINTESTINAL AND LIVER: Abdomen: Soft, epigastric tenderness, non-distended , no hernias, no masses, no organomegaly, no ascites, no guarding, no rebound tenderness, normoactive bowel sounds. Rectal: Deferred. GENITOURINARY: Female genitalia within normal limits. EXTREMITIES: No cyanosis, clubbing or edema. Results Result Diagram: 08/16/17 0548 08/16/17 0548 Results 24 hrs Laboratory Tests Test 08/15/17 14:15 08/15/17 18:15 08/16/17 01:18 08/16/17 05:48 Hemoglobin 7.9 L 8.5 L 8.1 L 9.9 #L Hematocrit 24.9 L 27.3 L 26.0 L 30.9 L White Blood Count 5.9 # Red Blood Count 3.54 #L Mean Corpuscular Volume 87.3 Mean Corpuscular Hemoglobin 28.0 L Mean Corpuscular Hemoglobin Concent 32.0 Red Cell Distribution Width 16.9 H Platelet Count 197 Mean Platelet Volume 11.0 H Neutrophils % 75.0 Lymphocytes % 11.9 L Monocytes % 7.5 Eosinophils % 4.8 Basophils % 0.5 Nucleated Red Blood Cells % 0.0 Neutrophils # 4.4 Lymphocytes # 0.7 L Monocytes # 0.4 Eosinophils # 0.3 Basophils # 0.0 Nucleated Red Blood Cells # 0.0 Sodium Level 143 Potassium Level 4.0 Chloride Level 111 H Carbon Dioxide Level 26 Anion Gap 10 Blood Urea Nitrogen 10 Creatinine 0.77 Glucose Level 82 Calcium Level 8.9 Test 08/16/17 06:06 Lab Scanned Report BLOOD TRANSFUSION Medications Medications Current Medications Bumetanide (Bumex) 1 mg DAILY PO ; Start 08/15/17 at 09:00 Sildenafil Citrate (Revatio) 10 mg TID PO Last administered on 08/14/17 17:25 ; Admin Dose 10 MG; Start 08/14/17 at 17:00 Pantoprazole (Protonix Iv) 40 mg DAILY@06 IV Last administered on 08/16/17 05: 52; Admin Dose 40 MG; Start 08/16/17 at 06:00 Morphine Sulfate (morphine) 1 mg Q4H PRN IV pain Last administered on 21:03; Admin Dose 1 MG; Start 08/15/17 at 20:30 PARISH SUAZO NP Aug 16, 2017 10:29
[2017-08-16] MEDS ORDERED: PROPOFOL 40 ML ONE (10:38)
--- NOTE | 2017-08-16 11:24 | OPPN ---
Date/Time of Note Date/Time of Note DATE: 08/16/17 TIME: 11:20 Proc Note GI Procedure Date 08/16/17 Indication: other (GI bleeding) Pre-procedure Diagnosis GI bleeding Post-procedure Diagnosis Impression: Normal colonic mucosa to cecum Normal terminal ileum Small internal hemorrhoids No bleeding or potential bleeding site identified in the colon or terminal ileum Active vaginal bleeding Plan: Advance diet as tolerated Monitor H&H Consider E LEARNING DEVELOPER evaluation . Procedure Performed: Colonoscopy Surgeon CHRIS WEST MD See signature line Beef Specialist none Anesthesia Type: MAC Anesthesiologist: PAULA COSTA Tourniquet Time none EBL none Transfusion required none Biopsy 1: None Grafts/Implants none Tubes/Drains none Complication(s) none Disposition: PACU Procedure Description After informed consent, with the patient/relatives understanding the procedure, its indications and potential risks and complications, including but not limited to: Allergic reaction, bleeding, perforation, infection, and after all pertinent questions were answered to the patient's satisfaction, the patient/ relatives signed the witnessed informed consent. Following this, premedication was administered slowly IV push under careful cardiovascular and respiratory monitoring with pulse OXIMETRY, automatic blood pressure, and computer aided design drafter. Once the sedative effect was achieved, the patient was placed in the left lateral decubitus position, digital rectal examination was performed. The colonoscope was then introduced and advanced under visual control throughout all segments of the colon including: the rectum, sigmoid, descending colon, splenic flexure, transverse colon, hepatic flexure, ascending colon and finally reaching the cecum which was clearly identified by transillumination, finger indentation and the ileocecal valve. The terminal ileum was entered and examined. Careful examination of the mucosa of the lower gastrointestinal tract both on insertion as well as withdrawal of the instrument disclosed the following findings: PREPARATION QUALITY: , [fair, procedure completed] RECTAL EXAM: The anorectal area was visualized examined and digital rectal examination performed with the following findings: There is clear evidence of active vaginal bleeding. Otherwise no evidence of perirectal disease, no masses. COLONIC MUCOSA: The mucosa of all segments of the colon and terminal ileum was carefully examined and showed the following findings: the examined mucosa appears within normal limits. There is no evidence of inflammatory changes, diverticular formation, polyps or neoplasms, vascular malformation, or any other abnormality. Small internal hemorrhoids The instrument was then withdrawn, the patient tolerated the procedure well and was transferred out of the Endoscopy Suite awake and in good condition to continue recovery under observation. Copies To: CC: CHRIS WEST MD, MORDO MD Aug 16, 2017 11:24
--- NOTE | 2017-08-16 11:25 | HPN ---
Date/Time of Note Date/Time of Note DATE: 08/16/17 TIME: 11:04 Interval H&P Admission Note Pt. seen H&P reviewed: No system changes CHRIS WEST MD Aug 16, 2017 11:25
[2017-08-16] MEDS ORDERED: LABETALOL HCL 20MG INJ IV PRN (11:30)
[2017-08-16] MEDS ORDERED: DIPHENHYDRAMINE 50 MG INJ IV PRN (11:30)
[2017-08-16] MEDS ORDERED: ONDANSETRON 4 MG INJ IV PRN (11:30)
[2017-08-16] MEDS ORDERED: EPHEDrine SULFATE 50 MG/5 ML SYG IV PRN (11:30)
[2017-08-16] MEDS ORDERED: MEPERIDINE 25 MG INJ IV PRN (11:30)
[2017-08-16] MEDS ORDERED: METOCLOPRAMIDE 10 MG INJ IV PRN (11:30)
[2017-08-16] MEDS ORDERED: hydrALAzine 20 MG INJ IV PRN (11:30)
[2017-08-16] MEDS ORDERED: FENTAnyl 50 MCG/ML VIAL IV PRN ×3 (11:30)
[2017-08-16] MEDS: morphine 2 MG INJ IV PRN (13:36)
--- NOTE | 2017-08-16 16:22 | PDOCDIS ---
Discharge Instructions DIAGNOSIS Discharge Diagnosis GI bleeding CONDITION Patient Condition: Good HOME CARE INSTRUCTIONS: Special Diet: NPO FOR GI EXAMS FOLLOW UP/APPOINTMENTS Follow-up Plan Return to the hospital if you have any more concerning bleeding LAILA LUI MD Aug 16, 2017 16:22
--- NOTE | 2017-08-16 16:23 | DS ---
Date/Time of Note Date/Time of Note DATE: 08/16/17 TIME: 16:22 Discharge Summary Admission/Discharge Info Admit Date/Time Aug 15, 2017 at 11:20 Discharge Date/Time Discharge Diagnosis GI bleeding Patient Condition: Good Hx of Present Illness 41 yo female with unclear nonischemic systolic cardiomyopathy, iron deficiency anemia, pulmonary artery hypertension who presents with hematochezia Patient with hematochezia over past three days. Last episode yesterday. Came to ED today because she feels week and out of breath. She has had this before. Previously underwent endoscopy earlier this year and told she has PUD and prescribed PPI and Fe. This was in [place] where she is visiting from currently. Feels well at rest. Hospital Course Patient was transfused two units of PRBCs and had no further episodes of bleeding. TTE showed pulmonary hypertension, severe TR and normal LVEF. She was continued on sildenafil. She underwent EGD and colonoscopy which did not reveal any source of bleeding. She was encouraged to return to the hospital if bleeding recurs and to otherwise resume her home medications and follow up with her primary doctor. Home Meds Reported Medications Ferrous Gluconate (Iron) 236 Mg Tablet, 236 MG PO DAILY, TAB 08/14/17 Bumetanide* (Bumetanide*) 1 Mg Tablet, 1 MG PO DAILY, TAB 08/14/17 Sildenafil Citrate* (Viagra*) 100 Mg Tablet, 100 MG PO DAILY Y for COUGH, TAB 08/14/17 Pantoprazole* (Pantoprazole*) 40 Mg Tablet.dr, 40 MG PO AC BREAKFAST, TAB 08/14/17 Follow-up Plan Return to the hospital if you have any more concerning bleeding Primary Care Provider Not On Staff Doctor Time spent on discharge: > 30 minutes Pending Labs Laboratory Tests Test 08/15/17 18:15 08/16/17 01:18 08/16/17 05:48 08/16/17 06:06 Hemoglobin 8.5g/dl (12.0-16.0) 8.1g/dl (12.0-16.0) 9.9g/dl (12.0-16.0) Hematocrit 27.3% (37.0-47.0) 26.0% (37.0-47.0) 30.9% (37.0-47.0) White Blood Count 5.910^3/ul (4.8-10.8) Red Blood Count 3.5410^6/ul (4.20-5.40) Mean Corpuscular Volume 87.3fl (82.0-101.0) Mean Corpuscular Hemoglobin 28.0pg (29.0-33.0) Mean Corpuscular Hemoglobin Concent 32.0g/dl (32.0-37.0) Red Cell Distribution Width 16.9% (11.5-14.5) Platelet Count 89197^3/UL (140-415) Mean Platelet Volume 11.0fl (7.4-10.4) Neutrophils % 75.0% (39.0-77.0) Lymphocytes % 11.9% (15.0-51.0) Monocytes % 7.5% (0.0-11.0) Eosinophils % 4.8% (0.0-7.0) Basophils % 0.5% (0.0-2.0) Nucleated Red Blood Cells % 0.0/100WBC (0.0-0.0) Neutrophils # 4.410^3/ul (1.6-7.5) Lymphocytes # 0.710^3/ul (0.8-2.9) Monocytes # 0.410^3/ul (0.3-0.9) Eosinophils # 0.310^3/ul (0.0-0.5) Basophils # 0.010^3/ul (0.0-0.1) Nucleated Red Blood Cells # 0.010^3/ul (0.0-0.0) Sodium Level 143mmol/L (135-144) Potassium Level 4.0mmol/L (3.5-5.1) Chloride Level 111mmol/L (97-110) Carbon Dioxide Level 26mmol/L (21-31) Anion Gap 10 (8-16) Blood Urea Nitrogen 10mg/dl (7-20) Creatinine 0.77mg/dl (0.44-1.00) Glucose Level 82mg/dl (70-220) Calcium Level 8.9mg/dl (8.4-10.2) Lab Scanned Report BLOOD [id number] Test 08/16/17 14:06 Hemoglobin 10.0g/dl (12.0-16.0) Hematocrit 31.0% (37.0-47.0) LAILA LUI MD Aug 16, 2017 16:23
[2017-08-17] MEDS ORDERED: PANTOPRAZOLE (EC) 40 MG TAB PO SCH (06:00)
== END 2017-08-16 17:16 | disposition home or self-care (01) | DRG 378 ==
LOC: E/R 12:13 → MS4 14:19 → OBSVTOIN 08-15 11:20
PROVIDERS: ADMIT Internal Medicine; ATTEND Internal Medicine
PROC: 30233N1 Transfusion of Nonautologous Red Blood Cells into Peripheral Vein, Percutaneous Approach (ICD-10-PCS; 2017-08-14)
PROC: 0DB78ZX Excision of Stomach, Pylorus, Via Natural or Artificial Opening Endoscopic, Diagnostic (ICD-10-PCS; 2017-08-15)
PROC: 0DB68ZX Excision of Stomach, Via Natural or Artificial Opening Endoscopic, Diagnostic (ICD-10-PCS; 2017-08-15)
PROC: 30233N1 Transfusion of Nonautologous Red Blood Cells into Peripheral Vein, Percutaneous Approach (ICD-10-PCS; 2017-08-15)
PROC: 0DB28ZX Excision of Middle Esophagus, Via Natural or Artificial Opening Endoscopic, Diagnostic (ICD-10-PCS; principal; 2017-08-15 15:00)
PROC: 30233N1 Transfusion of Nonautologous Red Blood Cells into Peripheral Vein, Percutaneous Approach (ICD-10-PCS; 2017-08-16)
PROC: 0DJD8ZZ Inspection of Lower Intestinal Tract, Via Natural or Artificial Opening Endoscopic (ICD-10-PCS; 2017-08-16)
DX: K92.2 Gastrointestinal hemorrhage, unspecified (principal); D62 Acute posthemorrhagic anemia; I27.21 Secondary pulmonary arterial hypertension; D50.9 Iron deficiency anemia, unspecified; K29.70 Gastritis, unspecified, without bleeding; K20.0 Eosinophilic esophagitis; K44.9 Diaphragmatic hernia without obstruction or gangrene; K64.8 Other hemorrhoids; I07.1 Rheumatic tricuspid insufficiency
CPT/HCPCS: 36415; 36430; 71010; 80048; 80053; 81001; 82550; 82553; 83880; 84443; 84484; 85014; 85018; 85025; 85610; 85730; 86850; 86900; 86901; 86920; 93005; 93306; 96374; 96375; G0378; C9113; J2270; J2370; J2405; J3480; J7030; J7040; P9016

== ENCOUNTER 2017-08-23 11:07 | Inpatient (IN) | payer OTHER ==
[~2017-08-23] VITALS: Ht 154.9 cm; Wt 53.8 kg
[~2017-08-23 11:07] MED LIST: BUME1TAB18 PO; FERR236T PO; PANT40TA4 PO; SILD100T51 PO
[2017-08-23 12:12] LABS: ABNORMAL IP MESSAGE 1; BASOPHILS % 0.6 % (0.0-2.0); EOSINOPHILS # 0.3 10^3/ul (0.0-0.5); EOSINOPHILS % 5.4 % (0.0-7.0); HEMATOCRIT 21.8 % (37.0-47.0); LYMPHOCYTES # 0.9 10^3/ul (0.8-2.9); LYMPHOCYTES % 18.2 % (15.0-51.0); MEAN CORPUSCULAR HEMOGLOBIN 26.8 pg (29.0-33.0); MEAN CORPUSCULAR HGB CONC 29.4 g/dl (32.0-37.0); MEAN CORPUSCULAR VOLUME 91.2 fl (82.0-101.0); MEAN PLATELET VOLUME 11.5 fl (7.4-10.4); MONOCYTE # 0.4 10^3/ul (0.3-0.9); MONOCYTES % 8.1 % (0.0-11.0); NEUTROPHIL # 3.5 10^3/ul (1.6-7.5); NEUTROPHILS % 67.3 % (39.0-77.0); PLATELET COUNT 248 10^3/UL (140-415); RED BLOOD COUNT 2.39 10^6/ul (4.20-5.40); RED CELL DISTRIBUTION WIDTH 16.8 % (11.5-14.5); WHITE BLOOD COUNT 5.2 10^3/ul (4.8-10.8)
[2017-08-23 12:16] LABS: POSITIVE DIFF @See below
[2017-08-23 12:17] LABS: HEMOGLOBIN 6.4 g/dl (12.0-16.0)
[2017-08-23] MEDS ORDERED: morphine 4 MG/ML VIAL IV STA (12:17)
[2017-08-23] MEDS ORDERED: SOD CHLORIDE 0.9% 250 ML IV ONE (12:17)
[2017-08-23 12:18] LABS: PATH REVIEW? YES
--- NOTE | 2017-08-23 12:29 | RADRPT ---
PROCEDURE: XR Chest. CLINICAL INDICATION: Chest pain TECHNIQUE: Frontal chest x-ray was obtained. COMPARISON: Chest x-ray August 14 FINDINGS: Heart is not enlarged. Mediastinum is not widened. No hilar masses seen. Lungs are clear of any infi ltrates. There is no effusion or pneumothorax. IMPRESSION: No evidence for active cardiopulmonary disease. .Brant Lamb MD, MD Date Time Electronically viewed and signed by .Brant Lamb MD, on 08/23/2017 12:28 .A/
[2017-08-23 12:30] LABS: ANION GAP 11 (8-16); BLOOD UREA NITROGEN 15 mg/dl (7-20); CALCIUM 8.5 mg/dl (8.4-10.2); CARBON DIOXIDE 23 mmol/L (21-31); CHLORIDE 113 mmol/L (97-110); CREATININE 0.88 mg/dl (0.44-1.00); GLUCOSE 90 mg/dl (70-220); POTASSIUM 4.2 mmol/L (3.5-5.1); SODIUM 143 mmol/L (135-144)
[2017-08-23 12:38] LABS: ANISOCYTOSIS 2+ (0-0); BASOPHILS % (M) 2 % (0-2); EOSINOPHILS % (M) 4 % (0-7); HYPOCHROMASIA 1+ (0-0); MICROCYTOSIS 2+ (0-0); MONOCYTES % (M) 4 % (0-11); PLATELET ESTIMATE NORMAL; POIKILOCYTOSIS 1+ (0-0); POLYCHROMASIA 3+ (0-0)
[2017-08-23 12:43] LABS: TROPONIN-I < 0.012 ng/ml (0.00-0.12)
[2017-08-23] MEDS ORDERED: ACETAMINOPHEN 325 MG TAB PO PRN ×2 (13:30→14:00)
[2017-08-23] MEDS ORDERED: ONDANSETRON 4 MG INJ IV PRN ×2 (13:30→14:00)
[2017-08-23] MEDS ORDERED: SILDENAFIL 100 MG TAB PO PRN (14:00)
[2017-08-23] MEDS ORDERED: ACETAMINOPHEN 650 MG SUPP PR PRN (14:00)
[2017-08-23] MEDS ORDERED: BISACODYL 10 MG SUPP PR PRN (14:00)
[2017-08-23] MEDS ORDERED: MAGNESIUM HYDROXIDE 30ML CUP PO PRN (14:00)
[2017-08-23] MEDS ORDERED: HYDROCODONE/APAP (5/325) TAB PO PRN ×2 (14:00)
[2017-08-23] MEDS ORDERED: DOCUSATE SODIUM 100 MG CAP PO PRN (14:00)
[2017-08-23] MEDS ORDERED: NACL 0.9% 3 ML SYG IV SCH (14:00)
--- NOTE | 2017-08-23 14:15 | ERD ---
ER Documentation Chief Complaint Chief Complaint CHEST PAIN X 2 DAYS , FEELS TIRED , H/O ANEMIA AND CHF HPI This is a 41-year-old female history of peptic ulcer disease, lower GI bleed. History of cardiomyopathy. The patient had a recent hospitalization for lower GI bleed prompting blood transfusion. The patient presents to the emergency room complaining of worsening symptoms including generalized fatigue. Occasional chest pain that is pressure-like. She denies any significant lower GI bleeding since discharge. No hematemesis. No melena. She states that she feels like her hemoglobin is low. No chest pain actively in the emergency department. ROS All systems reviewed and are negative except as per history of present illness. Medications Home Meds Reported Medications Ferrous Gluconate (Iron) 236 Mg Tablet, 236 MG PO DAILY, TAB 08/14/17 Bumetanide* (Bumetanide*) 1 Mg Tablet, 1 MG PO DAILY, TAB 08/14/17 Sildenafil Citrate* (Viagra*) 100 Mg Tablet, 100 MG PO DAILY Y for COUGH, TAB 08/14/17 Pantoprazole* (Pantoprazole*) 40 Mg Tablet.dr, 40 MG PO AC BREAKFAST, TAB 08/14/17 Allergies Allergies: Coded Allergies: allopurinol (Unverified Allergy, Unknown, 08/14/17) PMhx/Soc History of Surgery: No Anesthesia Reaction: No Hx Neurological Disorder: No Hx Respiratory Disorders: No Hx Cardiac Disorders: Yes (chf and plumonart artery htn) Hx Psychiatric Problems: No Hx Miscellaneous Medical Probl: No Hx Alcohol Use: No Hx Substance Use: No Hx Tobacco Use: No FmHx Family History: No diabetes Physical Exam Vitals Vital Signs Date Time Temp Pulse Resp B/P Pulse Ox O2 Delivery O2 Flow Rate FiO2 08/23/17 11:12 97.8 98 18 97/52 100 Physical Exam General: Well developed, well nourished, no acute distress Head: Normocephalic, atraumatic. Eyes: Pupils equally reactive, EOM intact ENT: Moist mucous membranes Neck: Supple, no lymphadenopathy Respiratory: Lungs clear bilaterally, no distress Cardiovascular: RRR, no murmurs, rubs, or gallops Abdominal: Soft, non-tender, non-distended, no peritoneal signs : Deferred MSK: No edema, no unilateral swelling, 5/5 strength Neurologic: Alert and oriented, moving all extremities, normal speech, no focal weakness, no cerebellar signs Skin: Pallor Psych: Normal mood Result Diagram: 08/23/17 1146 08/23/17 1146 Results 24 hrs Laboratory Tests Test 08/23/17 11:46 White Blood Count 5.210^3/ul Red Blood Count 2.3910^6/ul Hemoglobin 6.4g/dl Hematocrit 21.8% Mean Corpuscular Volume 91.2fl Mean Corpuscular Hemoglobin 26.8pg Mean Corpuscular Hemoglobin Concent 29.4g/dl Red Cell Distribution Width 16.8% Platelet Count 15859^3/UL Mean Platelet Volume 11.5fl Neutrophils % 67.3% Segmented Neutrophils % (Manual) 68% Band Neutrophils % (Manual) 2% Lymphocytes % 18.2% Lymphocytes % (Manual) 20% Monocytes % 8.1% Monocytes % (Manual) 4% Eosinophils % 5.4% Eosinophils % (Manual) 4% Basophils % 0.6% Basophils % (Manual) 2% Nucleated Red Blood Cells % 0.0/100WBC Neutrophils # 3.510^3/ul Neutrophils # (Manual) 3.510^3/ul Band Neutrophils # 0.110^3/ul Absolute Lymphocytes (Manual) 1.010^3/ul Lymphocytes # 0.910^3/ul Monocytes # 0.410^3/ul Absolute Monocytes (Manual) 0.210^3/ul Eosinophils # 0.310^3/ul Basophils # 0.010^3/ul Basophils # (Manual) 0.110^3/ul Nucleated Red Blood Cells # 0.010^3/ul Pathologist Review (Hematology) YES Platelet Estimate NORMAL Polychromasia 3+ Hypochromasia 1+ Poikilocytosis 1+ Anisocytosis 2+ Microcytosis 2+ Sodium Level 143mmol/L Potassium Level 4.2mmol/L Chloride Level 113mmol/L Carbon Dioxide Level 23mmol/L Anion Gap 11 Blood Urea Nitrogen 15mg/dl Creatinine 0.88mg/dl Glucose Level 90mg/dl Calcium Level 8.5mg/dl Troponin I < 0.012ng/ml Current Medications Medications (Trade) Dose Ordered Sig/Ty Route PRN Reason Start Time Stop Time Status Last Admin Dose Admin Sodium Chloride (NS) 250 ml @ 0 mls/hr Q0M ONCE IV 12/9/17 12:17 08/23/17 12:19 DC Morphine Sulfate (morphine) 4 mg ONCE STAT IV 08/23/17 12:17 08/23/17 12:19 DC Ondansetron HCl (Zofran Inj) 4 mg ER BRIDGE PRN IV NAUSEA AND/OR VOMITING 08/23/17 13:30 08/24/17 13:29 Acetaminophen (Tylenol Tab) 650 mg ER BRIDGE PRN PO MILD PAIN/FEVER 08/23/17 13:30 08/24/17 13:29 Bumetanide (Bumex) 1 mg DAILY PO 08/24/17 09:00 UNV Pantoprazole (Protonix Tab) 40 mg AC BREAKFAST PO 08/24/17 07:00 08/24/17 07:00 DC Sildenafil Citrate (Viagra) 100 mg DAILY PRN PO COUGH 08/23/17 14:00 UNV Miscellaneous Information 236 mg 236 mg DAILY PO 08/24/17 09:00 UNV Sodium Chloride (NS) 1,000 ml @ 75 mls/hr [id number] IV 08/23/17 13:56 UNV IV Flush (NS 3 ml) 3 ml PER PROTOCOL IV 08/23/17 14:00 UNV Ondansetron HCl (Zofran Inj) 4 mg Q6H PRN IV NAUSEA AND/OR VOMITING 08/23/17 14:00 UNV Acetaminophen (Tylenol Tab) 650 mg Q6H PRN PO PAIN LEVEL 1-3 OR FEVER 08/23/17 14:00 UNV Acetaminophen (Tylenol Supp) 650 mg Q6H PRN [place] PAIN LEVEL 1-3 OR FEVER 08/23/17 14:00 UNV Acetaminophen/ Hydrocodone Bitart ([place] (5/325)) 1 tab Q6H PRN PO MODERATE PAIN LEVEL 4-6 08/23/17 14:00 UNV Acetaminophen/ Hydrocodone Bitart ([place] (5/325)) 2 tab Q6H PRN PO SEVERE PAIN LEVEL 7-10 08/23/17 14:00 UNV Morphine Sulfate (morphine) 2 mg Q4H PRN IV SEVERE PAIN LEVEL 7-10 08/23/17 14:00 UNV Docusate Sodium (Colace) 100 mg Q12H PRN PO CONSTIPATION 08/23/17 14:00 UNV Magnesium Hydroxide (Milk Of Mag) 30 ml DAILY PRN PO CONSTIPATION 08/23/17 14:00 UNV Bisacodyl (Dulcolax Supp) 10 mg DAILY PRN [place] CONSTIPATION 08/23/17 14:00 UNV Pantoprazole 40 mg 40 mg DAILY@06 IV 08/24/17 06:00 08/24/17 06:00 DC Pantoprazole 80 mg/Sodium Chloride 100 ml @ 10 mls/hr Q10H IVPB 08/23/17 14:30 Octreotide Acetate/Sodium Chloride (Sandostatin/NS) 50 ml @ 2.5 mls/hr Q20H IV 08/23/17 14:30 Procedures/MDM EKG, MONITORS, & DIAGNOSTIC IMAGING: EKG #1 EKG: I reviewed and interpreted a 12-lead EKG. Rhythm: Normal sinus rhythm Ectopy: None Intervals: No abnormalities ST segments: No elevations or depressions T waves: T-wave inversions in the inferior and lateral leads consistent with baseline EKG #2 EKG: I reviewed and interpreted a 12-lead EKG. Rhythm: Normal sinus rhythm Ectopy: None Intervals: No abnormalities ST segments: No elevations or depressions T waves: T-wave inversions in inferior and lateral leads consistent with baseline Chest x-ray: I reviewed and interpreted a 1 view of the chest Mediastinum: No enlargement Cardiac silhouette: No cardiomegaly Airspace: Clear lung vee bilaterally without evidence of pneumothorax Bones: No evidence of fracture LAB INTERPRETATION: Hemoglobin less than 7 negative troponin MEDICAL DECISION MAKING: The patient has a history of anemia secondary to GI hemorrhage. The patient has no active bleeding but her hemoglobin she states feels is low. Her hemoglobin is 6.2 here in the emergency room. The patient will benefit from transfusion. I discussed with the patient and/or family the risks, benefits, alternatives of blood transfusion. This includes allergic reaction and infections including HIV and hepatitis. The patient and/or family were able to verbalize these risks , stated understanding. A document has been signed and placed in the chart. Her chest pain is likely secondary to demand ischemia. Given that I do not believe this is consistent with acute plaque rupture I do not feel that aspirin is necessary in the emergency setting. Her chest pain is improved. ER COURSE: She was typed and crossmatched for 2 units packed red blood cells. The patient likely has equilibrium state secondary to subacute GI bleed. The patient does not have any evidence of active bleeding. No indication for PPI at this time. The patient will be admitted to the hospital for further management I kept the patient and/or family informed of laboratory and diagnostic imaging results throughout the emergency room course. DISPOSITION PLAN: telemetry admission CONSULTATION: Accepting care team and consultations: I discussed the current laboratory data, diagnostic imaging and emergency care provided. Admitting team: Dr. Modi Admitting team indication: Insurance directed Departure Diagnosis: Primary Impression: Chest pain Chest pain type: unspecified Qualified Code: R07.9 - Chest pain, unspecified type Additional Impression: Symptomatic anemia Condition: Stable PETE NATION MD Aug 23, 2017 14:15
--- NOTE | 2017-08-23 14:29 | HP ---
Date/Time of Note Date/Time of Note DATE: 08/23/17 TIME: 14:26 Assessment/Plan VTE Prophylaxis VTE Prophylaxis Intervention: SCD's Lines/Catheters IV [facility] Saline Lock Assessment/Plan Chief Complaint/Hosp Course Assessment and plan 1. GI bleed. Patient did report having bright red blood per rectum. No further reports of hematochezia. Continue on PPI medication. Plan for blood transition. Monitor H&H. Will reconsult vp corporate development 2. History of pulmonary hypertension. Continue on sildenafil. No active issue noted at this time. 3. History of diastolic dysfunction. Continue on Bumex. 4. History of severe tricuspid regurgitation. Patient for outpatient follow-up for this issue. Admission process time is greater than 40 minutes Discussed plan of care with Problems: HPI/ROS Admit Date/Time Admit Date/Time Hx of Present Illness This is a 41-year-old female with history of nonischemic systolic cardiomyopathy , iron deficiency, pulmonary artery hypertension, hematochezia, came to [facility] due to reports of rectal bleeding. Patient did report that she was experiencing bright red blood per rectum 2 days ago with bowel movement. Abdomen she was recently discharged on August 16, 2017 for similar issue. She reports that since her repeat episode of hematochezia she has been having extreme weakness. As such went to [facility] for further evaluation. Upon examination she was found to have a hemoglobin of 6.4 which did downward trend from 10 when she was discharged. She was afebrile on arrival and vital signs did appear stable. She did report having some chest discomfort but she does report that this does happen when she is anemic. First troponin is negative. And her recent EF on echocardiogram done on August 14, 2017 showed her to have an ejection fraction of 65% with abnormal diastolic dysfunction. We will evaluate her for the aformentiond issues. ROS 12 point review of systems obtained and entirely negative except that mentioned in the history of present illness PMH/Family/Social Past Medical History Medical/surgical history onischemic systolic cardiomyopathy, iron deficiency, pulmonary artery hypertension, rectal bleeding, hemorrhoids Past Surgical History Past Surgical Hx: endoscopy Exam/Review of Systems Vital Signs Vitals Vital Signs Date Time Temp Pulse Resp B/P Pulse Ox O2 Delivery O2 Flow Rate FiO2 08/23/17 11:12 97.8 98 18 97/52 100 Exam Constitutional: alert, oriented Psych: nl mood/affect Head: normocephalic Eyes: nl conjunctiva Neck: non-tender, supple Respiratory: clear to auscultation, normal air movement Cardiovascular: regular rate and rhythm Gastrointestinal: soft, No tender Musculoskeletal: nl extremities to inspection, nl gait and stance Neurological: SALON RECEPTIONIST II-XII intact, nl mental status, nl speech Skin: nl turgor Labs Result Diagram: 08/23/17 1146 08/23/17 1146 Medications Medications Current Medications Bumetanide (Bumex) 1 mg DAILY PO ; Start 08/24/17 at 09:00; Status UNV Sildenafil Citrate (Viagra) 100 mg DAILY PRN PO COUGH; Start 08/23/17 at 14:00 ; Status UNV Miscellaneous Information 236 mg 236 mg DAILY PO ; Start 08/24/17 at 09:00; Status UNV Sodium Chloride (NS) 1,000 ml @ 75 mls/hr [id number] IV ; Start 08/23/17 at 13:56 ; Status UNV Ondansetron HCl (Zofran Inj) 4 mg Q6H PRN IV NAUSEA AND/OR VOMITING; Start 08/23/17 at 14:00; Status UNV Acetaminophen (Tylenol Tab) 650 mg Q6H PRN PO PAIN LEVEL 1-3 OR FEVER; Start 08/23/17 at 14:00; Status UNV Acetaminophen (Tylenol Supp) [address] PAIN LEVEL 1-3 OR FEVER; Start 08/23/17 at 14:00; Status UNV Acetaminophen/ Hydrocodone Bitart ([place] (5/325)) 1 tab Q6H PRN PO MODERATE PAIN LEVEL 4-6; Start 08/23/17 at 14:00; Status UNV Acetaminophen/ Hydrocodone Bitart ([place] (5/325)) 2 tab Q6H PRN PO SEVERE PAIN LEVEL 7-10; Start 08/23/17 at 14:00; Status UNV Morphine Sulfate (morphine) 2 mg Q4H PRN IV SEVERE PAIN LEVEL 7-10; Start 08/23 at 14:00; Status UNV Docusate Sodium (Colace) 100 mg Q12H PRN PO CONSTIPATION; Start 08/23/17 at 14: 00; Status UNV Magnesium Hydroxide (Milk Of Mag) 30 ml DAILY PRN PO CONSTIPATION; Start at 14:00; Status UNV Bisacodyl (Dulcolax Supp) [address] CONSTIPATION; Start 08/23/17 at 14 :00; Status UNV Pantoprazole (Protonix Tab) 40 mg BID@06,18 PO ; Start 08/23/17 at 18:00 REGINALD LINDER Aug 23, 2017 14:29
[2017-08-23] MEDS ORDERED: PANTOPRAZOLE IV 80 MG in SOD CHLORIDE 0.9% 100 ML IVPB SCH (14:30)
[2017-08-23] MEDS ORDERED: NS IV SCH (14:30)
[2017-08-23] MEDS ORDERED: OCTREOTIDE IV SCH (14:30)
--- NOTE | 2017-08-23 14:35 | CONS ---
Date/Time of Note Date/Time of Note DATE: 08/23/17 TIME: 14:20 Assessment/Plan Assessment/Plan Chief Complaint/Hosp Course Summary Assessment and Plan: Assessment: Severe anemia R/o GI vs BLUING OVEN TENDER etiology Cardiomyopathy PAH Plan: Ct enterography Continue to monitor H/H transfuse for HGB less than 7.5 Continue PPI therapy Start clear liquid diet Consider BLUING OVEN TENDER evaluation EGD/Colon not warranted at this time as patient was recently scoped about 1 week ago without evidence of bleeding Patient seen in collaboration with Dr. Siddiqi Problems: Consultation Date/Type/Reason Admit Date/Time Date of Consultation: Aug 23, 2017 Type of Consultation: GI Reason for Consultation Severe anemia Hx of Present Illness This is a 41 year old female with past medical history of cardiomyopathy and PAH , who was just recently hospitalized for similar symptoms. Last admission pt under EGD and colonoscopy both negative for evidence of bleeding. She presented to the ER with increased fatigue and chest pressure. Hgb found to be 6.4, MCV 91.2, MCH 26.8, Trop negative x1. At the time of evaluation she denies n/v, abd pain, constipation, diarrhea, hematemesis, dysphagia, or pyrosis. She stated her last bloody BM was Friday described as maroon in color, she also c/o some light vaginal bleeding on Friday. Although, she has very heavy menstrual periods usually, LMP 2 weeks ago, described as very heavy with clots.Has IUD to help control amount of bleeding. With current presentation not entirely sure anemia is only r/t GI source will order Ct enterography for further investigation, may consider BLUING OVEN TENDER to evaluate. Further recommendation based on clinical course and results of imaging, Constitutional: no complaints Eyes: no complaints ENT: no complaints Cardiovascular: chest pain, No no complaints Gastrointestinal: blood Genitourinary: bleeding (vaginal) Musculoskeletal: no complaints Skin: no complaints Neurologic: dizziness, no complaints Past Medical History Medical History: congestive heart failure, other (PAH) Past Surgical History Past Surgical Hx: endoscopy Social History Alcohol Use: none Smoking Status: Never smoker Drug Use: none Exam/Review of Systems Vital Signs Vitals Vital Signs Date Time Temp Pulse Resp B/P Pulse Ox O2 Delivery O2 Flow Rate FiO2 08/23/17 11:12 97.8 98 18 97/52 100 Exam GENERAL: Pale, alert & oriented x 3, in no acute distress SKIN: No lesions, no stigmata chronic liver disease, no evidence of bleeding diathesis LYMPHATIC: No palpable lymphadenopathy. HEAD: Normocephalic, atraumatic, no tenderness. EYES: Pupils equal reactive to light and accommodation, full extraocular movements, sclera clear, non-icteric, no discharge. EARS/NOSE AND THROAT: Ears normal, nose normal, oropharynx normal, oral membranes well hydrated without lesions. NECK: Supple, no masses, thyroid normal, CHEST: Inspection within normal limits. CARDIOVASCULAR: Heart: Regular rate and rhythm, no murmurs, gallops or rubs. RESPIRATORY: Lungs clear to auscultation and percussion, no wheezing, no rubs GASTROINTESTINAL AND LIVER: Abdomen: Soft, non tenderness, non-distended, no hernias, no masses, no organomegaly, no ascites, no guarding, no rebound tenderness, normoactive bowel sounds. Rectal: Deferred. GENITOURINARY: Female genitalia within normal limits. EXTREMITIES: No cyanosis, clubbing or edema. Results Result Diagram: 08/23/17 1146 08/23/17 1146 Results 24 hrs Laboratory Tests Test 08/23/17 11:46 White Blood Count 5.2 Red Blood Count 2.39 #L Hemoglobin 6.4 #*L Hematocrit 21.8 #L Mean Corpuscular Volume 91.2 Mean Corpuscular Hemoglobin 26.8 L Mean Corpuscular Hemoglobin Concent 29.4 L Red Cell Distribution Width 16.8 H Platelet Count 248 # Mean Platelet Volume 11.5 H Neutrophils % 67.3 Segmented Neutrophils % (Manual) 68 Band Neutrophils % (Manual) 2 Lymphocytes % 18.2 Lymphocytes % (Manual) 20 Monocytes % 8.1 Monocytes % (Manual) 4 Eosinophils % 5.4 Eosinophils % (Manual) 4 Basophils % 0.6 Basophils % (Manual) 2 Nucleated Red Blood Cells % 0.0 Neutrophils # 3.5 Neutrophils # (Manual) 3.5 Band Neutrophils # 0.1 Absolute Lymphocytes (Manual) 1.0 Lymphocytes # 0.9 Monocytes # 0.4 Absolute Monocytes (Manual) 0.2 L Eosinophils # 0.3 Basophils # 0.0 Basophils # (Manual) 0.1 H Nucleated Red Blood Cells # 0.0 Pathologist Review (Hematology) YES Platelet Estimate NORMAL Polychromasia 3+ Hypochromasia 1+ Poikilocytosis 1+ Anisocytosis 2+ Microcytosis 2+ Sodium Level 143 Potassium Level 4.2 Chloride Level 113 H Carbon Dioxide Level 23 Anion Gap 11 Blood Urea Nitrogen 15 Creatinine 0.88 Glucose Level 90 Calcium Level 8.5 Troponin I < 0.012 Medications Medications Current Medications Bumetanide (Bumex) 1 mg DAILY PO ; Start 08/24/17 at 09:00; Status UNV Sildenafil Citrate (Viagra) 100 mg DAILY PRN PO COUGH; Start 08/23/17 at 14:00 ; Status UNV Miscellaneous Information 236 mg 236 mg DAILY PO ; Start 08/24/17 at 09:00; Status UNV Sodium Chloride (NS) 1,000 ml @ 75 mls/hr [id number] IV ; Start 08/23/17 at 13:56 ; Status UNV Ondansetron HCl (Zofran Inj) 4 mg Q6H PRN IV NAUSEA AND/OR VOMITING; Start 08/23/17 at 14:00; Status UNV Acetaminophen (Tylenol Tab) 650 mg Q6H PRN PO PAIN LEVEL 1-3 OR FEVER; Start 08/23/17 at 14:00; Status UNV Acetaminophen (Tylenol Supp) 650 mg Q6H PRN [place] PAIN LEVEL 1-3 OR FEVER; Start 08/23/17 at 14:00; Status UNV Acetaminophen/ Hydrocodone Bitart ([employer] (5/325)) 1 tab Q6H PRN PO MODERATE PAIN LEVEL 4-6; Start 08/23/17 at 14:00; Status UNV Acetaminophen/ Hydrocodone Bitart ([employer] (5/325)) 2 tab Q6H PRN PO SEVERE PAIN LEVEL 7-10; Start 08/23/17 at 14:00; Status UNV Morphine Sulfate (morphine) 2 mg Q4H PRN IV SEVERE PAIN LEVEL 7-10; Start 08/23 at 14:00; Status UNV Docusate Sodium (Colace) 100 mg Q12H PRN PO CONSTIPATION; Start 08/23/17 at 14: 00; Status UNV Magnesium Hydroxide (Milk Of Mag) 30 ml DAILY PRN PO CONSTIPATION; Start at 14:00; Status UNV Bisacodyl (Dulcolax Supp) 10 mg DAILY PRN [place] CONSTIPATION; Start 08/23/17 at 14 :00; Status UNV Pantoprazole (Protonix Tab) 40 mg BID@06,18 PO ; Start 08/23/17 at 18:00 Copies To: CC: CHRIS SIDDIQI MD, VICTORIA Aug 23, 2017 14:31
[2017-08-23 16:20] VITALS: TEMP 98.2
[2017-08-23 18:26] LABS: HEMATOCRIT 24.6 % (37.0-47.0); HEMOGLOBIN 7.4 g/dl (12.0-16.0)
[2017-08-23] MEDS ORDERED: BARIUM SULFATE 0.1% 450 ML BTL (VOLUMEN) PO ONE (18:39)
[2017-08-23] MEDS: morphine 2 MG INJ IV PRN (18:44)
[2017-08-23 18:52] LABS: CREATINE KINASE 23 IU/L (23-200)
[2017-08-23 19:03] LABS: CK-MB 0.33 ng/ml (0.0-2.4)
[2017-08-23 19:04] LABS: TROPONIN-I < 0.012 ng/ml (0.00-0.12)
[2017-08-23] MEDS ORDERED: GLUCAGON 1 MG INJ IM ONE (19:56)
[2017-08-23 20:15] VITALS: PULSE 113
[2017-08-23 20:18] VITALS: BP 95/63; RESP 19
[2017-08-23 20:19] VITALS: Ht 154.9 cm; Wt 53.8 kg
[2017-08-23] MEDS ORDERED: SOD CHLORIDE 0.9% 100 ML ONE (21:20)
[2017-08-23] MEDS ORDERED: IOHEXOL 100 ML ONE (21:20)
[2017-08-23] MEDS: SOD CHLORIDE 0.9% 1,000 ML IV SCH (21:50)
[2017-08-23] MEDS: PANTOPRAZOLE (EC) 40 MG TAB PO SCH (21:51)
[2017-08-23 23:59] LABS: CK-MB 0.29 ng/ml (0.0-2.4)
[2017-08-24] VITALS (8 sets, daily range): BP systolic 86–94; BP diastolic 53–64; PULSE 90–101; RESP 17–19
[2017-08-24] LABS: CREATINE KINASE < 20 IU/L (23-200); TROPONIN-I < 0.012 ng/ml (0.00-0.12)
[2017-08-24] MEDS: SOD CHLORIDE 0.9% 1,000 ML IV SCH (03:00)
[2017-08-24] MEDS ORDERED: PANTOPRAZOLE 40 MG INJ IV SCH (06:00)
[2017-08-24 06:17] LABS: BASOPHIL # 0.1 10^3/ul (0.0-0.1); BASOPHILS % 0.6 % (0.0-2.0); EOSINOPHILS # 0.3 10^3/ul (0.0-0.5); EOSINOPHILS % 4.1 % (0.0-7.0); HEMATOCRIT 28.6 % (37.0-47.0); HEMOGLOBIN 8.9 g/dl (12.0-16.0); LYMPHOCYTES # 0.9 10^3/ul (0.8-2.9); LYMPHOCYTES % 11.8 % (15.0-51.0); MEAN CORPUSCULAR HEMOGLOBIN 27.1 pg (29.0-33.0); MEAN CORPUSCULAR HGB CONC 31.1 g/dl (32.0-37.0); MEAN CORPUSCULAR VOLUME 86.9 fl (82.0-101.0); MONOCYTE # 0.4 10^3/ul (0.3-0.9); MONOCYTES % 4.9 % (0.0-11.0); NEUTROPHIL # 6.2 10^3/ul (1.6-7.5); NEUTROPHILS % 78.2 % (39.0-77.0); PLATELET COUNT 192 10^3/UL (140-415); RED BLOOD COUNT 3.29 10^6/ul (4.20-5.40); RED CELL DISTRIBUTION WIDTH 17.2 % (11.5-14.5)
[2017-08-24 06:45] LABS: ALBUMIN 2.8 g/dl (3.3-4.9); BILIRUBIN,INDIRECT 1.9 mg/dl (0-1.1); BILIRUBIN,TOTAL 1.9 mg/dl (0.2-1.3); CALCIUM 8.6 mg/dl (8.4-10.2); CHOL/HDL RATIO 4.2 RATIO; CREATININE 0.84 mg/dl (0.44-1.00); MAGNESIUM 2.1 mg/dl (1.7-2.5); PHOSPHORUS 3.9 mg/dl (2.5-4.9); POTASSIUM 4.2 mmol/L (3.5-5.1); TOTAL PROTEIN 5.6 g/dl (6.1-8.1)
[2017-08-24] MEDS: PANTOPRAZOLE (EC) 40 MG TAB PO SCH (06:47)
[2017-08-24] MEDS ORDERED: PANTOPRAZOLE (EC) 40 MG TAB PO SCH (07:00)
[2017-08-24 07:12] LABS: THYROID STIMULATING HORMONE 1.42 MIU/L (0.465-4.680)
[2017-08-24] MEDS: morphine 2 MG INJ IV PRN (07:59)
[2017-08-24] MEDS ORDERED: BUMETANIDE 1 MG TAB PO SCH (09:00)
--- NOTE | 2017-08-24 09:40 | RADRPT ---
PROCEDURE: CT abdomen and pelvis without and with IV contrast (CT enterography) CLINICAL INDICATION: Rectal versus vaginal bleeding TECHNIQUE: Abdomen and pelvis CT was performed on a high-resolution multidetector CT scanner both before and following the uncomplicated intravenous administration of 100 cc of Omnipaque 350. Coron al and sagittal reformatted images were obtained from the axial source images. The exam CTDI by seri es is 5.70, 5.70, 5.74 mGy, and the total exam DLP equals 880.22 mGy-cm. DICOM images are available . One or more of the following dose reduction techniques were used: Automated exposure control. Adjustment of the mA and/or kV according to patient size. Use of iterative reconstruction technique. COMPARISON: None available FINDINGS: CT abdomen: The incompletely visualized heart is abnormal with evidence of right ventricular hypertrophy as well as right atrial and right ventricular enlargement with resultant compression of the left atrium and left ventricle. Right hemidiaphragm slight elevation of uncertain etiology and chronicity. Left lower lobe and lingu la subsegmental atelectasis versus scar. The liver is unremarkable. Two subcentimeter low attenuation spleen findings are too small to characterize but may be cystic. The gallbladder is unremarkable. No intrahepatic or extrahepatic bile duct dilation seen. The pancreas is unremarkable. The adrenal glands are unremarkable. Right kidney upper pole subcentimeter low attenuation finding is too small to characterize but may b e a cyst. No kidney stone or ureteral stone detected. No ascites, hydronephrosis, or enlarged lymph nodes identified. The stomach is dilated containing low attenuation fluid, likely secondary to ingestion of dilute ora l contrast, though gastric dysmotility is in the differential diagnosis. There is gastric antrum wal l thickening versus suboptimal distension and associated mucosal hyperenhancement, and there is mable alistair change at the gastroduodenal junction. No abnormally dilated small bowel loops seen. No evidence of small bowel mucosal hyperenhancement. Aortoiliac atherosclerotic mural calcifications. CT pelvis: The bladder is not optimally distended and thus not optimally assessed; a urachal remnant is noted.. No enlarged lymph nodes or free pelvic fluid detected. Scattered descending colon diverticula with out evidence of diverticulitis. Enlarged uterus contains an IUD. Uterine attenuation is diffusely heterogeneous. Bilateral slightly dilated uterine arterial branches. Bilateral ovarian small low attenuation findings may be follicles . Spondylosis of the visualized spine including L5-S1 discogenic disease. Slight anterolisthesis of L5 with respect to S1. Few small scattered osseous sclerotic findings are nonspecific but may be bone islands. Small amount of gas with adjacent poorly defined soft tissue in the left buttock subcutaneous tissue s likely is secondary to recent injection. Right buttock subcutaneous small calcification likely is an injection granuloma. IMPRESSION: 1. No abnormally dilated small bowel loops seen. No evidence of small bowel mucosal hyperenhancemen t. Scattered descending colon diverticula without evidence of diverticulitis. 2. The stomach is dilated containing low attenuation fluid, likely secondary to ingestion of dilute oral contrast, though gastric dysmotility is in the differential diagnosis. There is gastric antrum wall thickening versus suboptimal distension and associated mucosal hyperenhancement, and there is caliber change at the gastroduodenal junction. A barium upper GI study may be performed for further analysis. 3. Heterogeneous, enlarged uterus containing an IUD and evidence of bilateral slightly dilated uter ine arterial branches. Differential considerations include leiomyomatous uterus, adenomyosis, and ot her etiologies. Bilateral ovarian small possible follicles. A pelvic MR scan may be performed for fu rther analysis. 4. Spleen and right kidney too small to characterize low attenuation findings, possibly cystic; com pare to older corresponding imaging studies. 5. Abnormal heart, as detailed above with evidence of right heart enlargement. Correlate with a 2-D echocardiogram. RPTAT: TT Physician Lukasz Date Time Electronically viewed and signed by Physician Lukasz on 08/24/2017 09:39 JULIUS/
[2017-08-24 12:28] LABS: HEMATOCRIT 30.1 % (37.0-47.0); HEMOGLOBIN 9.5 g/dl (12.0-16.0)
[2017-08-24 12:42] LABS: IRON 31 ug/dl (35-150)
--- NOTE | 2017-08-24 12:51 | PN ---
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 Siddiqi Subjective: Course reviewed with nursing staff Patient interviewed and examined All labs, imaging and other results reviewed The patient resting in bed HGB has improved with blood transfusions, Patient feels well. advance diet as tolerated, again patient has had a recent EGD/colon x1 week ago without evidence of GI bleed. Reviewed Ct enterography, no significant GI findings, possible leiomyomatous uterus vs adenomyosis vs other etiologies. Pt should follow p with BOTTOMING MACHINE OPERATOR. PHYSICAL EXAMINATION: GENERAL: Well developed, well nourished, alert & oriented x 3, in no acute distress SKIN: No lesions, no stigmata chronic liver disease, no evidence of bleeding diathesis LYMPHATIC: No palpable lymphadenopathy. HEAD: Normocephalic, atraumatic, no tenderness. EYES: Pupils equal reactive to light and accommodation, full extraocular movements, sclera clear, non-icteric, no discharge. EARS/NOSE AND THROAT: Ears normal, nose normal, oropharynx normal, oral membranes well hydrated without lesions. NECK: Supple, no masses, thyroid normal, CHEST: Inspection within normal limits. CARDIOVASCULAR: Heart: Regular rate and rhythm, no murmurs, gallops or rubs. RESPIRATORY: Lungs clear to auscultation GASTROINTESTINAL AND LIVER: Abdomen: Soft, non tenderness, non-distended, no hernias, no masses, no organomegaly, no ascites, no guarding, no rebound tenderness, normoactive bowel sounds. Rectal: Deferred. GENITOURINARY: Female genitalia within normal limits. EXTREMITIES: No cyanosis, clubbing or edema. Problems: Exam/Review of Systems Vital Signs Vitals Vital Signs Date Time Temp Pulse Resp B/P Pulse Ox O2 Delivery O2 Flow Rate FiO2 08/24/17 12:21 101 08/24/17 11:10 97.6 18 94/64 95 08/23/17 16:20 Room Air Intake and Output 08/23/17 08/23/17 08/24/17 14:59 22:59 06:59 Intake Total 350 ml 1730 ml Output Total 1400 ml Balance 350 ml 330 ml Results Result Diagram: 08/24/17 1213 08/24/17 0550 Results 24 hrs Laboratory Tests Test 08/23/17 18:01 08/23/17 23:14 08/24/17 05:49 08/24/17 05:50 Hemoglobin 7.4 L 8.9 #L Hematocrit 24.6 L 28.6 L Creatine Kinase 23 < 20 L Creatine Kinase Index 1.4 Creatinine Kinase MB (Mass) 0.33 0.29 Troponin I < 0.012 < 0.012 White Blood Count 8.0 # Red Blood Count 3.29 #L Mean Corpuscular Volume 86.9 Mean Corpuscular Hemoglobin 27.1 L Mean Corpuscular Hemoglobin Concent 31.1 L Red Cell Distribution Width 17.2 H Platelet Count 192 # Mean Platelet Volume 11.0 H Neutrophils % 78.2 H Lymphocytes % 11.8 L Monocytes % 4.9 Eosinophils % 4.1 Basophils % 0.6 Nucleated Red Blood Cells % 0.0 Neutrophils # 6.2 Lymphocytes # 0.9 Monocytes # 0.4 Eosinophils # 0.3 Basophils # 0.1 Nucleated Red Blood Cells # 0.0 Hemoglobin A1c 5.0 Sodium Level 143 Potassium Level 4.2 Chloride Level 112 H Carbon Dioxide Level 21 Anion Gap 14 Blood Urea Nitrogen 14 Creatinine 0.84 Glucose Level 75 Calcium Level 8.6 Phosphorus Level 3.9 Magnesium Level 2.1 Total Bilirubin 1.9 H Direct Bilirubin 0.00 Indirect Bilirubin 1.9 H Aspartate Amino Transf (AST/SGOT) 14 L Alanine Aminotransferase (ALT/SGPT) 26 Alkaline Phosphatase 58 Total Protein 5.6 L Albumin 2.8 L Globulin 2.80 Albumin/Globulin Ratio 1.00 Triglycerides Level 79 Cholesterol Level 131 LDL Cholesterol, Calculated 84 HDL Cholesterol 31 L Cholesterol/HDL Ratio 4.2 Thyroid Stimulating Hormone (TSH) 1.420 Free Thyroxine Index 3.42 Thyroxine (T4) 9.5 Triiodothyronine (T3) Uptake 36.0 Test 08/24/17 06:28 08/24/17 12:13 Lab Scanned Report BLOOD TRANSFUSION Hemoglobin 9.5 L Hematocrit 30.1 L Medications Medications Current Medications Bumetanide (Bumex) 1 mg DAILY PO ; Start 08/24/17 at 09:00 Sildenafil Citrate (Viagra) 100 mg DAILY PRN PO COUGH; Start 08/23/17 at 14:00 ; Status UNV Miscellaneous Information 236 mg 236 mg DAILY PO ; Start 08/24/17 at 09:00; Status UNV Sodium Chloride (NS) 1,000 ml @ 75 mls/hr [id number] IV Last administered on 03:00; Admin Dose 75 MLS/HR; Start 08/23/17 at 13:56 Ondansetron HCl (Zofran Inj) 4 mg Q6H PRN IV NAUSEA AND/OR VOMITING Last administered on 08/23/17 22:53; Admin Dose 4 MG; Start 08/23/17 at 14:00 Acetaminophen (Tylenol Tab) 650 mg Q6H PRN PO PAIN LEVEL 1-3 OR FEVER; Start 08/23/17 at 14:00 Acetaminophen (Tylenol Supp) 650 mg Q6H PRN [place] PAIN LEVEL 1-3 OR FEVER; Start 08/23/17 at 14:00 Acetaminophen/ Hydrocodone Bitart ([place] (5/325)) 1 tab Q6H PRN PO MODERATE PAIN LEVEL 4-6; Start 08/23/17 at 14:00 Acetaminophen/ Hydrocodone Bitart ([place] (5/325)) 2 tab Q6H PRN PO SEVERE PAIN LEVEL 7-10; Start 08/23/17 at 14:00 Morphine Sulfate (morphine) 2 mg Q4H PRN IV SEVERE PAIN LEVEL 7-10 Last administered on 08/24/17 07:59; Admin Dose 2 MG; Start 08/23/17 at 14:00 Docusate Sodium (Colace) 100 mg Q12H PRN PO CONSTIPATION; Start 08/23/17 at 14: 00 Magnesium Hydroxide (Milk Of Mag) 30 ml DAILY PRN PO CONSTIPATION; Start at 14:00 Bisacodyl (Dulcolax Supp) 10 mg DAILY PRN [place] CONSTIPATION; Start 08/23/17 at 14 :00 Pantoprazole (Protonix Tab) 40 mg BID@06,18 PO Last administered on 08/24/17 06:47; Admin Dose 40 MG; Start 08/23/17 at 18:00 JOEY CORTES 10, 2017 12:51 JOEY CORTES Aug 24, 2017 12:51
[2017-08-24 12:52] LABS: TOTAL IRON BINDING CAPACITY 356 ug/dl (241-421)
--- NOTE | 2017-08-24 13:07 | PDOCDIS ---
Discharge Instructions DIAGNOSIS Discharge Diagnosis 1. Reported GI bleed. 2. Iron deficiency anemia 3. History of diastolic dysfunction 4. Pulmonary hypertension HOME CARE INSTRUCTIONS: Diet Instructions: Low Fat /Cholesterol FOLLOW UP/APPOINTMENTS Follow-up Plan 1. Follow-up with the primary care provider within a week REGINALD LINDER Aug 24, 2017 13:07
[2017-08-24] MEDS ORDERED: FER325 PO (13:09)
[2017-08-24] MEDS ORDERED: DOCU-144 PO (13:09)
[2017-08-24] MEDS ORDERED: PANT40TA4 PO (13:09)
[2017-08-24] MEDS ORDERED: FERROUS GLUCONATE (EC) 325 MG TAB PO SCH (14:30)
== END 2017-08-24 14:50 | disposition home or self-care (01) | DRG 313 ==
LOC: E/R 11:07 → TEL 13:19
PROVIDERS: ADMIT Internal Medicine; ATTEND Internal Medicine
PROC: 30233N1 Transfusion of Nonautologous Red Blood Cells into Peripheral Vein, Percutaneous Approach (ICD-10-PCS; principal; 2017-08-23)
DX: R07.9 Chest pain, unspecified (principal); D64.9 Anemia, unspecified
CPT/HCPCS: 36415; 36430; 71010; 74178; 80048; 80053; 80061; 82550; 82553; 83036; 83540; 83735; 84100; 84436; 84443; 84479; 84484; 85014; 85018; 85025; 86644; 86850; 86900; 86901; 86920; 93005; 96374; 96375; C9113; J1610; J2270; J2354; J2405; J7030; J7040; P9016; Q9967